=== PATIENT | female | born 1985 | race Caucasian/White ===

== ENCOUNTER 2021-12-03 07:03 | Outpatient (CLI) | payer OTHER, SELFPAY ==
--- NOTE | 2021-12-03 07:15 | CRLHL7_ITS ---
For Patients: As a result of the Century Cures Act, medical imaging exams and procedure reports are released immediately into your electronic medical record. You may view this report before your referring provider. If you have questions, please contact your health care provider. INDICATION: Infertility, upcoming embryo transfer. TECHNIQUE: Ultrasound pelvis transvaginal for better assessment or to better visualize the endometrium. Real-time sonographic images with color Doppler images of the ovaries. No spectral waveform analysis. COMPARISON: Pelvic ultrasound 07/19/2021. FINDINGS: Uterus: 7.4 x 3.8 x 5.0 cm. Arcuate uterus with normal smooth fundal contour. Normal echotexture of the myometrium. No masses. Endometrium: Transvaginal imaging was performed to better evaluate the endometrium. Endometrial thickness measures 8 mm. No sign of endometrial mass or fluid. Right ovary measures 3.7 x 1.9 x 2.0 cm and left ovary measures 4.5 x 2.1 x 2.2 cm. No ovarian or adnexal masses. Normal color flow in the ovaries. Cul-de-sac: No significant free fluid. IMPRESSION: Arcuate uterus, otherwise unremarkable exam. Dictated by Gregory Lee MD @ 12/03/2021 9:34:35 AM (Electronically Signed)
[2021-12-03 08:05] LABS: C Reactive Protein* < 0.5 mg/dL (0.5-1.0)
[2021-12-04 10:33] LABS: Estradiol Premenol Female 331 pg/mL
[2021-12-08 23:38] LABS: Progesterone, HPLC-MS/MS <0.10 ng/mL
== END 2021-12-03 07:04 | disposition home or self-care (01) ==
PROVIDERS: Visit Provider Specialist
DX: N94.9 Unspecified condition associated with female genital organs and menstrual cycle (principal)
CPT/HCPCS: 36415; 76830; 82670; 84144; 84443; 86140

== ENCOUNTER 2021-12-11 07:00 | Outpatient (CLI) | payer OTHER, SELFPAY ==
--- NOTE | 2021-12-11 07:15 | CRLHL7_ITS ---
For Patients: As a result of the Century Cures Act, medical imaging exams and procedure reports are released immediately into your electronic medical record. You may view this report before your referring provider. If you have questions, please contact your health care provider. CLINICAL HISTORY: Pre IVF, EVALUATE FOR UTERINE AND OVARIAN ABNORMALITIES Comparison: 12/03/2021 TECHNIQUE: 2D win scale and color Doppler images were acquired of the pelvis using a transvaginal approach. FINDINGS: On transvaginal imaging, the myometrium has a normal uniform echotexture. The uterus measures 6.7 x 4.0 x 5.5 cm. The endometrial lining appears normal and measures 10 mm in thickness. The left ovary measures 4.1 x 2.1 x 2.0 cm in size and the right ovary measures 4.6 x 2.9 x 2.1 cm. The ovaries demonstrate normal arterial and venous blood flow on color Doppler analysis. Multiple subcentimeter ovarian follicles are present bilaterally. Trace pelvic free fluid with debris. IMPRESSION: No abnormalities of the uterus or ovaries identified. Trace mildly complex pelvic free fluid. Dictated by Sean Olivares MD @ 12/11/2021 9:02:20 AM (Electronically Signed)
[2021-12-13 13:12] LABS: Estradiol by TMS 321.1 pg/mL
[2021-12-15 20:36] LABS: Progesterone, HPLC-MS/MS <0.10 ng/mL
== END 2021-12-11 07:01 | disposition home or self-care (01) ==
LOC: US 07:00
PROVIDERS: Visit Provider Specialist
DX: N92.1 Excessive and frequent menstruation with irregular cycle (principal); N94.9 Unspecified condition associated with female genital organs and menstrual cycle
CPT/HCPCS: 36415; 76830; 82670; 84144

== ENCOUNTER 2022-01-28 14:56 | Outpatient (CLI) | payer OTHER, SELFPAY ==
--- NOTE | 2022-01-28 15:00 | CRLHL7_ITS ---
For Patients: As a result of the Cures Act, medical imaging exams and procedure reports are released immediately into your electronic medical record. You may view this report before your referring provider. If you have questions, please contact your health care provider. INDICATION: First trimester scan, establish dates. COMPARISON: None. TECHNIQUE: Real-time win-scale imaging of the pelvis was performed. FINDINGS: Sonographic imaging demonstrates a single living intrauterine gestation. The embryo demonstrates a regular cardiac rate measuring 171 beats per minute. The embryo`s crown-rump length measurement of 2.0 cm corresponds to a gestational age of 8 weeks 4 days with a sonographic due date of 09/05/2022. There is a normal-appearing yolk sac. There are no gross abnormalities noted within the embryo at this early state of development. The gestational sac has a somewhat irregular margin. There is a large perigestational hemorrhage measuring 4.4 x 2.8 x 5.2 cm. The amount of fluid within the sac appears appropriate for gestational age. The cervix is closed. The myometrium appears normal. The ovaries are of normal size. There are no suspicious fluid collections noted in the cul-de-sac. IMPRESSION: Single living intrauterine with sonographic gestational age 8 weeks 4 days and sonographic due date 09/05/2022. Large subchorionic hemorrhage to the left of the gestational sac measuring 4.4 x 2.8 x 5.2 cm. Slightly irregular margin to the gestational sac. Follow-up in 2 weeks recommended. Dictated by Sean Olivares MD @ 01/29/2022 10:14:07 AM (Electronically Signed)
== END 2022-01-28 14:57 | disposition home or self-care (01) ==
PROVIDERS: PCP Family Medicine; Visit Provider Registered Nurse
DX: Z34.91 Encounter for supervision of normal pregnancy, unspecified, first trimester (principal); O20.9 Hemorrhage in early pregnancy, unspecified; Z3A.08 8 weeks gestation of pregnancy
CPT/HCPCS: 76817

== ENCOUNTER 2022-01-28 16:31 | Outpatient (CLI) | payer OTHER, SELFPAY ==
[2022-01-28 20:21] LABS: Hepatitis B Surface Antigen* Negative (Negative)
[2022-01-28 20:29] LABS: HIV 1/2/P24 Combo Screen* Negative (Negative)
[2022-01-28 20:38] LABS: Hepatitis C Virus Antibody* Negative (Negative)
[2022-01-28 21:23] LABS: Chlamydia DNA Amplified* NOT DETECTED (No Detected); GC DNA Amplified* NOT DETECTED (No Detected)
[2022-01-31 00:44] LABS: Varicella-Zoster Virus Ab, IgG 504.1 IV
[2022-01-31 00:51] LABS: Rubella Antibody IgG 10.4 IU/mL
[2022-01-31 02:09] LABS: Rapid Plasma Reagin (RPR) Non Reactive (Non Reactive)
== END 2022-01-28 16:32 | disposition home or self-care (01) ==
PROVIDERS: PCP Family Medicine; Visit Provider Registered Nurse
DX: Z34.91 Encounter for supervision of normal pregnancy, unspecified, first trimester (principal); Z3A.08 8 weeks gestation of pregnancy
CPT/HCPCS: 86592; 86703; 86762; 86787; 86803; 86850; 86900; 86901; 87086; 87340; 87491; 87591

== ENCOUNTER 2022-02-11 13:51 | Outpatient (CLI) | payer OTHER, SELFPAY ==
--- NOTE | 2022-02-11 14:00 | CRLHL7_ITS ---
For Patients: As a result of the Century Cures Act, medical imaging exams and procedure reports are released immediately into your electronic medical record. You may view this report before your referring provider. If you have questions, please contact your health care provider. INDICATION: F/U on KYM COMPARISON: 01/28/2022 TECHNIQUE: Real-time win-scale imaging of the pelvis was performed. FINDINGS: Sonographic imaging demonstrates a single living intrauterine gestation. The embryo demonstrates a regular cardiac rate measuring 176 beats per minute. The embryo`s crown-rump length measurement of 4.3 cm corresponds to a gestational age of 11 weeks 1 day with a sonographic due date of 09/01/2022. There is a normal-appearing yolk sac. There are no gross abnormalities noted within the embryo at this early state of development. The gestational sac has a normal appearance. There is a small 0.8 x 0.5 x 1.7 cm perigestational hemorrhage. The amount of fluid within the sac appears appropriate for gestational age. The cervix is closed. The myometrium appears normal. The right ovary is normal. The left ovary is not visualized. There are no suspicious fluid collections noted in the cul-de-sac. IMPRESSION: Single living intrauterine with sonographic gestational age 11 weeks 1 day and sonographic due date of 09/01/2022. Small inferior subchorionic hemorrhage measures 8 x 5 x 17 millimeters. Dictated by Sean Olivares MD @ 02/12/2022 9:04:25 AM (Electronically Signed)
== END 2022-02-11 13:52 | disposition home or self-care (01) ==
LOC: US 13:52
PROVIDERS: PCP Family Medicine; Visit Provider Registered Nurse
DX: Z34.91 Encounter for supervision of normal pregnancy, unspecified, first trimester (principal); Z3A.11 11 weeks gestation of pregnancy
CPT/HCPCS: 76816; 76817

== ENCOUNTER 2022-07-30 14:39 | Outpatient (CLI) | payer OTHER, SELFPAY | END 2022-07-30 14:40 | disposition home or self-care (01) | PROVIDERS: PCP Family Medicine; Visit Provider Obstetrics & Gynecology | DX: O09.523 Supervision of elderly multigravida, third trimester (principal); Z3A.34 34 weeks gestation of pregnancy | CPT/HCPCS: 82565; 82570; 84156; 84450; 84460; 84520 ==

== ENCOUNTER 2022-08-01 08:32 | Outpatient (CLI) | payer OTHER, SELFPAY | END 2022-08-01 08:33 | disposition home or self-care (01) | PROVIDERS: PCP Family Medicine; Visit Provider Obstetrics & Gynecology | DX: O09.523 Supervision of elderly multigravida, third trimester (principal); Z3A.35 35 weeks gestation of pregnancy | CPT/HCPCS: 76819; 82565; 84450; 84460; 84520; 84550 ==

== ENCOUNTER 2022-08-05 09:13 | Outpatient (CLI) | payer OTHER, SELFPAY | END 2022-08-05 09:14 | disposition home or self-care (01) | LOC: NFLDREF 16:18 | PROVIDERS: PCP Family Medicine; Referring Provider Family Medicine; Visit Provider Obstetrics & Gynecology | DX: O16.9 Unspecified maternal hypertension, unspecified trimester (principal) | CPT/HCPCS: 82570; 84156 ==

== ENCOUNTER 2022-08-08 16:17 | Outpatient (CLI) | payer OTHER, SELFPAY ==
[2022-08-08 16:26] VITALS: PULSE 92; O2SAT 100
[2022-08-08 16:27] VITALS: BP 119/75; PULSE 93; RESP 18; TEMP 36.8
[2022-08-08 16:44] LABS: Hemoglobin* 11.2 gm/dL (12.0-16.0); Mean Corpuscular HGB Conc 33 gm/dL (32-36); Mean Corpuscular Hemoglobin 31 pg (26-34); Mean Corpuscular Volume 94 fL (80-100); Platelet Count* 234 K/uL (140-440); Red Blood Count 3.62 m/uL (4.00-5.20); White Blood Count* 9.89 K/uL (4.50-11.00)
[2022-08-08 16:45] LABS: Slide Review Reflex No
[2022-08-08 16:50] VITALS: BP 119/76; PULSE 100
[2022-08-08 16:56] LABS: Prothrombin Time 12.7 Seconds
[2022-08-08 16:57] LABS: Alanine Aminotransferase* 17 U/L (4-35); Aspartate Amino Transferase* 28 U/L (12-35); Blood Urea Nitrogen* 6 mg/dL (5-24); Creatinine* 0.5 mg/dL (0.5-1.5); Estimated Glomerular Filt Rate 124 ml/min; Fibrinogen* 461 mg/dL (200-450); Partial Thromboplastin Time* 29 Seconds (23-33)
[2022-08-08 17:08] VITALS: BP 130/81; PULSE 96
[2022-08-08] MEDS: CALCIUM CARBONATE 500 MG CHEW PO (17:12)
[2022-08-08 17:20] VITALS: BP 121/77; PULSE 104
[2022-08-08 17:36] VITALS: BP 133/82; PULSE 90
--- NOTE | 2022-08-08 17:42 | P.OBLDTN_ITS ---
OB - Triage/Final Diagnosis Visit Information Date of evaluation: 08/08/22 Narrative: The patient is a 37 year old 1 para 0 at 36 0/7 weeks gestation by LMP, who presents with RUQ pain. complicated by mild pre-eclampsia and GDMA1. Sent over from [facility] clinic for labs and monitoring while awaiting results of imaging. Evaluation Laboratory results: Laboratory Tests 08/08/22 Range/Units 16:34 WBC 9.89 (4.50-11.00) K/uL RBC 3.62 L (4.00-5.20) m/uL Hgb 11.2 L (12.0-16.0) gm/dL Hct 34.0 (33.0-51.0) % MCV 94 (80-100) fL MCH 31 (26-34) pg MCHC 33 (32-36) gm/dL Plt Count 234 (140-440) K/uL INR 0.90 L (0.91-1.10) APTT 29 (23-33) Seconds Fibrinogen 461 H (200-450) mg/dL BUN 6 (5-24) mg/dL Creatinine 0.5 (0.5-1.5) mg/dL Estimated GFR 124 ml/min AST 28 (12-35) U/L ALT 17 (4-35) U/L Vital signs: Vital Signs - 24 hr 08/08/22 16:26 08/08/22 16:27 08/08/22 16:27 Temperature 98.3 F Pulse Rate 93 Respiratory Rate 18 Blood Pressure 119/75 Pulse Oximetry 100 08/08/22 16:50 08/08/22 17:08 08/08/22 17:20 Temperature Pulse Rate 100 96 104 H Respiratory Rate Blood Pressure 119/76 130/81 121/77 Pulse Oximetry 08/08/22 17:36 Temperature Pulse Rate 90 Respiratory Rate Blood Pressure 133/82 Pulse Oximetry Comments: Abdominal ultrasound shows adenomymatosis of gallbladder wall. No biliary obs truction. Fetus (Single) Heart Rate Baseline: 152 Controller Repairer And Tester Variability: Moderate (6-25) Monitor Accelerations: Present Monitor Decelerations: None Final Diagnosis (1) Adenomyomatosis of gallbladder: Status: Acute Problem details: Surgery referral for consideration of cholecystectomy. Discussed with Dr. Holcomb, surgery can be delayed until after delivery. No need for delivery. Low fat diet recommended. (2) Pre-eclampsia: Status: Acute Problem details: without severe features. Delivery at 37 weeks recommended.
--- NOTE | 2022-08-08 18:12 | PC.OBNST ---
NST Note NST Note Start: 08/08/22 16:22 Freq: ONCE Status: Active Protocol: Document 08/08/22 17:54 AAP (Rec: 08/08/22 18:12 AAP [id number]) NST Note 3 Para (# of births) 1 EDC 09/05/22 Gestational Age In Weeks & Days 36 Weeks & 0 Days High Risk Factors High Blood Pressure - Gestational,Diabetes - Gestational Diet Controlled Patient Presented with Complaint(s) of Other Other Complaints Rule out pre-e. Right upper quadrant pain. Pt sent from clinic. Reactive Yes Appropriate for Gestational Age Yes ROSIE Alexander, RN Date 08/08/22 Reactive Yes Appropriate for Gestational Age Yes ROSIE Killian RNC Date 08/08/22 OB NST charge Yes Complete NST Note via Write Note Yes The provider's electronic signature indicates the NST is reactive/appropriate for gestational age. *Note to provider: If an addendum is required, open the patient's chart and click on the note under the Nurse/Allied Health tab.
[2022-08-09 01:19] LABS: Bilirubin Total* 0.6 mg/dL (0.1-1.5); Lipase* 115 U/L (23-300)
== END 2022-08-08 17:54 | disposition home or self-care (01) ==
LOC: OB OUT 16:18 → OB 16:20
PROVIDERS: PCP Family Medicine; Visit Provider Obstetrics & Gynecology
DX: O24.419 Gestational diabetes mellitus in pregnancy, unspecified control (principal)
CPT/HCPCS: 36415; 59025; 76705; 76819; 82247; 82248; 82565; 83690; 84450; 84460; 84520; 85027; 85384; 85610; 85730; 87081; 87653; 99213; A9270

== ENCOUNTER 2022-08-12 15:10 | Outpatient (CLI) | payer OTHER, SELFPAY ==
[2022-08-12 15:17] VITALS: BP 142/91; PULSE 112
[2022-08-12] MEDS: BETAMETHASONE SOD PHOS/ACETATE 6 MG/ML ML 12 MG IM (15:19)
== END 2022-08-12 15:25 | disposition home or self-care (01) ==
LOC: OB CLI 15:10 → OB 15:11
PROVIDERS: PCP Family Medicine; Visit Provider Obstetrics & Gynecology
DX: O09.523 Supervision of elderly multigravida, third trimester (principal); Z3A.36 36 weeks gestation of pregnancy
CPT/HCPCS: 99211; J0702

== ENCOUNTER 2022-08-13 07:12 | Outpatient (CLI) | payer OTHER, SELFPAY ==
--- NOTE | 2022-08-13 07:15 | CRLHL7_ITS ---
For Patients: As a result of the Century Cures Act, medical imaging exams and procedure reports are released immediately into your electronic medical record. You may view this report before your referring provider. If you have questions, please contact your health care provider. INDICATION: PREECLAMPSIA, GDM, AMA TECHNIQUE: Real time win scale imaging of the fetus was performed. COMPARISON: 08/08/2022 FINDINGS: Sonographic imaging demonstrates a single living intrauterine gestation. Fetus demonstrates a regular cardiac rate of 141 beats per minute. Fetus has a transverse position, head maternal left. The placenta lies posteriorly. Amniotic fluid volume appears normal and there is a single deepest pocket of 4.1 cm. The estimated weight is 3012gm which lies at the 55th %. On the prior OB ultrasound dated 07/11/2022 the estimated weight was at the 35th percentile. BPD 7th percentile. HC 52nd present. AC 62nd percentile. FL 67th percentile. The fetus was active and demonstrated normal breathing movements. There was normal flexion and extension of the trunk and extremities. IMPRESSION: Normal biophysical profile score 8/8. Sonographic gestational age 36 weeks 4 days and sonographic due date 09/06/2022. Good correlation with dates. Normal interval growth. Estimated weight 55th percentile. Abdominal circumference 62nd percentile. Dictated by Sean Olivares MD @ 08/13/2022 9:19:52 AM (Electronically Signed)
== END 2022-08-13 07:13 | disposition home or self-care (01) ==
LOC: US 07:13
PROVIDERS: PCP Family Medicine; Visit Provider Obstetrics & Gynecology
DX: O14.90 Unspecified pre-eclampsia, unspecified trimester (principal); O24.419 Gestational diabetes mellitus in pregnancy, unspecified control; O09.523 Supervision of elderly multigravida, third trimester; Z3A.36 36 weeks gestation of pregnancy
CPT/HCPCS: 76816; 76819

== ENCOUNTER 2022-08-14 10:33 | Inpatient (IN) | payer OTHER, SELFPAY ==
[2022-08-14] VITALS (19 sets, daily range): BP systolic 119–146; BP diastolic 73–86; PULSE 91–103; TEMP 36.6–37.2; O2SAT 89–100; BMI 34.0
[2022-08-14] MEDS: TERBUTALINE 1 MG/ML INJ 0.25 MG SUBCUT (10:06)
[2022-08-14] MEDS: miSOPROStoL 25 MCG/0.25 TABLET VAGINAL ×4 (11:35→19:55)
--- NOTE | 2022-08-14 12:57 | P.LDBA_ITS ---
Subjective History of Present Illness Date Seen: 08/14/22 Narrative: Patient is being admitted to Labor and Delivery for IOL due to preeclampsia w/o severe features. She is a 37 year old at 36 6/7 weeks gestation. Her full history and physical was dictated by Dr. Verdugo on 08/11/22. Please see this for details. This morning ECV was attempted and succesful, presentation was found to be transverse back down on 08/11/22. Specific Issues/Plans : Joseph. Baby: Girl! 1. Conceived through IVF. Frozen embryo transfer 12-18-21. * Recommend level 2 ultrasound with echo-ordered on 03/04/22: Performed on 04/11/2022, normal anatomy, low-lying placenta. * echo 05/16/22: Intermittent PACs noted, otherwise normal. Recommendations: Completely eliminating all caffeine sources. Recommend weekly Doptones for 5-10 minutes to assess frequency of arrhythmia. If still intermittent with periods of normal sinus rhythm in between, continue with this weekly monitoring until delivery. Reviewed at that PAC's after resolve spontaneously. If there is no arrhythmia for 2 weeks in a row, then can return to routine care at that time. However, if tachy or Norris- arrhythmia is ever noted, please call us to facilitate next steps based on findings. Additionally, if PAC are persisted beyond the next 4 weeks, please refer back so we can coordinate another echo. * Growth @ 32 weeks: EFW: 35%, AC: 35%, BPD: <3%, HC: 44%, FL: 56% * Consider delivery at 39 weeks 2. Advanced maternal age: * Daily baby ASA starting at 12 weeks * Genetic screening: declined, as they had genetic testing done prior to embryo transfer. Need records: reviewed normal genetic embryo transferred * Level 2 ultrasound and echo as above 3. Large KYM 4.4 x 2.8 x 5.2 cm. Rec. pelvic rest and avoiding strenuous lifting. * IMPRESSION: Single living intrauterine with sonographic gestational age 8 weeks 4 days and sonographic due date 09/05/2022.Large subchorionic hemorrhage to the left of the gestational sac measuring 4.4 x 2.8 x 5.2 cm. Slightly irregular margin to the gestational sac. 4. H/o abnormal pap and normal colp in 2014 per patient. Patient reports normal pap and neg. HPV 10/2018. No record of this. Pap repeated at first OB and normal. 5. Low lying placenta (1.8cm from os). Will recheck at 32 week u/s. RESOLVED. Placental edge 2.4cm from internal os. 6. Diagnosed with basal cell carcinoma of the face (beneath right eye). Planning Mohs surgery in September. Patient prefers to wait until delivery to have the procedure done. 7. Gestational DM , diet-controlled * 1hr GCT: 143. Patient declines 3hr GTT due to work schedule. * Checked BS x1-2 weeks: >25% of BG were elevated * 2x weekly surveillance (NST Mon/Tu, BPP Th/Fri, scheduled)Q.4 weeks growth scan * 32 weeks: EFW: 35%, AC: 35%, BPD: <3%, HC: 44%, FL: 56% * 36wks: [] pending 9. Preeclampsia, currently without definite severe features. * Elevated BP (140/70) on 07/30/22. * Reports occasional mild elevations of BP at work (130/90), as well as several severe-range BP elevations at home; no severe range elevations documented in clinic * glycerin operator visit for BP teaching done and home cuff reportedly functioning. * HELLP labs 07/30/22 normal except protein:creatinine 0.30. 24 hour urine ordered: 550 mg * Begin twice weekly antepartum testing, BPP alternating with NST * Weekly PIH labs * IOL 37 0/7 weeks gestation for preeclampsia without severe features * Betamethasone August 11 and 05 20. RUQ pain from gallbladder adenomyomatosis * Diagnosis based on abdominal US 08/08/22 * General surgery consult ordered. Likely needs cholecystectomy . * Low fat diet recommended. Flu: allergic reaction to flu vaccination in the past. COVID: Not vaccinated. Recommended. Reviewed risks of COVID infection in . TDAP: declined OB - Problem Based A/P Additional Plan (1) Pre-eclampsia: Problem details: without severe features. Delivery at 37 weeks recommended. Status: Acute (2) Gestational diabetes: Status: Acute Plan 1. IOL started with cervical ripening, per Cytotec protocol. Will avoid cook catheter due to unstable lie. 2. GBS negative no need for antibiotic prophylaxis. 3. Preeclampsia w/o severe features, will monitor BPs and clinical symptoms closely. If severely elevated blood pressures will treat with IV antihypertensives if needed, start Magnesium sulfate etc... 4. GDMA1, will monitor BS levels per protocol treat appropriately if needed. 5. Continuous monitoring. 6. Pain management as per patient preference. OB Exam Physical Exam Vital signs: Temp Pulse BP Pulse Ox 98.9 F 93 127/80 98 08/14/22 10:03 08/14/22 10:04 08/14/22 10:04 08/14/22 11:05 Detailed Labor and Delivery Exam Patient Gravid: Yes Dilation (cm): 0 Effacement (%): 50 Cervix position: mid Consistency: medium Contraction Frequency: None Tachysystole: No Fetus (Single) Station: -3 Amniotic Membrane Status: intact Heart Rate Baseline: 140 Monitor Accelerations: Present Monitor Decelerations: None Group Home Variability: Moderate (6-25)
--- NOTE | 2022-08-14 13:24 | P.OBO_ITS ---
OB Outpatient HPI History of Present Illness Date Seen: 08/14/22 History of Present Illness: 37 year old at 36 6/7 weeks gestation presents for planned external cephalic version. Fetus has been in varying positions in the last few weeks: cephalic, breech, and most recently, transverse. Procedure note: External cephalic version Obstetricians: Candice Verdugo MD and Letty Willis MD I discussed risks of procedure with patient, including discomfort, abnormal heart rate, placental abruption, rupture of membranes, labor, and possibility of unsuccessful attempt. Consent form was reviewed with and signed by patient. Bedside ultrasound was performed, revealing fetus to be transverse position, back down, head to maternal left. IV was placed and patient was given a single dose of terbutaline. 10 minutes after this dose, maternal abdomen was coated in ultrasound gel. Two attempts were made to institute a backward roll of the fetus, moving the head and body in a clockwise direction. The fetus was successfully converted to cephalic lie after the 2nd attempt. tracing before and after was reassuring. Patient tolerated procedure well. Meds Home Medications and Allergies Home Medications Medication Instructions Recorded Confirmed Type coenzyme W23-trkawik E 100 mg-100 3 cap PO DAILY 01/28/22 08/11/22 History unit capsule 103-folic acid 400 1 tab PO DAILY 01/28/22 08/11/22 History mcg-omeg3 32.5 mg-dha-fish oil chew tablet ( with DHA and Folic Acid) magnesium 250 mg tablet 250 mg PO QDAY 03/04/22 08/11/22 History calcium carbonate 200 mg calcium 200 mg PO BID 04/29/22 08/11/22 History (500 mg) chewable tablet (Tums) Allergies Allergy/AdvReac Type Severity Reaction Status Date / Time influenza virus vaccine, Allergy Severe Arm Verified 08/11/22 14:38 specific swelling, numbness and tingling lactose AdvReac Intermediate Gastrointestinal Verified 08/11/22 14:38 Upset [facility] Medical History (Updated 08/14/22 @ 13:28 by Candice Verdugo MD) Recurrent major depressive disorder ?F33.9 - Major depressive disorder, recurrent, unspecified (ICD-10) History of abnormal cervical Papanicolaou smear (10/12/15) ?Z87.42 - Personal history of other diseases of the female genital tract (ICD-10) Fibrocystic breast changes ?N60.19 - Diffuse cystic mastopathy of unspecified breast (ICD-10) Female infertility ?N97.9 - Female infertility, unspecified (ICD-10) Anxiety ?F41.9 - Anxiety disorder, unspecified (ICD-10) Surgical History (Updated 08/11/22 @ 15:18 by Candice Verdugo MD) History of loop electrical excision procedure (LEEP) (12/04/15) ?Z98.890 - Other specified postprocedural states (ICD-10) History of laparoscopy (2019) ?Z98.890 - Other specified postprocedural states (ICD-10) Family History Father Coronary artery disease Social History (Updated 01/22/22 @ 08:58 by Suzi Mitchell) Narrative: . 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 What is your current living situation?: I presently have a place to live Problems where you live: no known problems In the past 12 months, utilities in danger of being shut off: no In the past 12 mos, have been you worried that your food would run out before you had money to buy more?: never true In the past 12 mos, the food you bought just didn't last and you didn't have money to buy more?: never true Smoking Status: Never smoker How often does anyone, including family, friends and others, physically hurt you : never How often does anyone, including family, friends and others, insult or talk down to you: never How often does anyone, including family, friends and others, threaten you with harm: never How often does anyone, including family, friends and others, scream or curse at you: never Little interest or pleasure in doing things: not at all Feeling down, depressed, or hopeless: several days History History 3 Elective abortions Para 0 Spontaneous abortions Hx # Term Pregnancies Ectopic pregnancies Hx # Pregnancies Multiple births Number of Living Children 0 OB - H&P: Exam Physical Exam Vital signs: Temp Pulse BP Pulse Ox 98.9 F 93 127/80 98 08/14/22 10:03 08/14/22 10:04 08/14/22 10:04 08/14/22 11:05 Assessment and Plan Assessment and plan (1) Pre-eclampsia: Problem comment: without severe features. Delivery at 37 weeks recommended. Status: Acute (2) Gestational diabetes: Status: Acute (3) Successful external cephalic version: Status: Acute Plan Patient was subsequently admitted for IOL for preeclampsia.
[2022-08-14 15:14] LABS: Basophils Percent Auto 0.3 % (0.0-3.0); Eosinophils Percent Auto 0.7 % (0.0-7.0); Hematocrit 35.8 % (33.0-51.0); Hemoglobin* 11.7 gm/dL (12.0-16.0); Immature Granulocytes Pct Auto 2.1 %; Lymphocytes Percent Auto 17.7 % (20-44); Mean Corpuscular HGB Conc 33 gm/dL (32-36); Mean Corpuscular Hemoglobin 31 pg (26-34); Mean Corpuscular Volume 95 fL (80-100); Monocytes Percent Auto 7.9 % (0.0-11.0); Neutrophils Percent Auto 71.3 % (42.0-72.0); Platelet Count* 282 K/uL (140-440); Red Blood Count 3.77 m/uL (4.00-5.20)
[2022-08-14 15:16] LABS: Slide Review Reflex No
[2022-08-14] MEDS: hydrOXYzine pamoate 25 MG CAPSULE 100 MG PO (22:01)
[2022-08-14] MEDS: MORPHINE 10 MG/ML inj IM (22:05)
[2022-08-15] VITALS (43 sets, daily range): BP systolic 97–153; BP diastolic 7–117; PULSE 92–136; RESP 16–20; TEMP 36.3–38.1; O2SAT 94–100
[2022-08-15] MEDS: LACTATED RINGERS 1000 ML 1,000 ML 500 ML IV (01:28)
[2022-08-15] MEDS: TERBUTALINE 1 MG/ML INJ 0.25 MG SUBCUT (01:33)
--- NOTE | 2022-08-15 04:03 | P.OBPN_ITS ---
Subjective Time Seen by Provider: 04:03 Date Seen: 08/15/22 Narrative: Feeling uncomfortable Objective Vital Signs: Last Vital Signs Temp 98.9 F 08/15/22 03:31 Pulse 100 08/15/22 03:31 Resp 16 08/15/22 03:31 BP 131/78 08/15/22 03:31 Pulse Ox 99 08/14/22 16:40 Pelvic Exam Dilation (cm): Ft Effacement (%): 75 Station: -4 Comments: Transverse back up, head towards maternal right. Contractions Monitor mode: External Contraction pattern: Regular Contraction intensity: Mild Assessment Assessment: induction ongoing (Induction stopped after malpresentation diagnosis ) Station: -4 Status: Category l Heart Rate Baseline: 140 Nursing Home Variability: Moderate (6-25) Monitor Accelerations: Present Monitor Decelerations: None Plan Plan: I was asked by nurses to reassess patient, she had felt as if baby had moved back again to transverse position. She had received so far 4 doses of Cytotec and was tachysystolic and very uncomfortable, we had tried IV Morphine and Vistaril but this was not helpful, recommendation to give one dose of T erbutaline and this has spaced out uterine contractions to a more regular pattern. Cervix is still unchanged. With bedside US confirmed malpresentation, transverse back up head towards maternal right side. Discussed my concerns with patient and . Patient had asked about repeating a ECV. Discussed that this is a possibility, but certain findings concern me, such as she is harley frequently and this would make the ECV trial harder. Why baby has not stayed vertex, is there a structural lesion in her lower uterine segment that is occupying space, is there a umbilical cord wrapped around the body preventing baby to come down? Discussed that my other concern would be the need for an emergency delivery vs a more controlled setting. Discussed that section is a surgical procedure with risks associated but when we talk about an emergency delivery risks are slightly higher (bleeding, damage to nearby organs, infection.) Offered proceeding with delivery at this time vs trying ECV again and I would try IV Oxytocin instead of Cytotec if we are succesful. I wanted to give patient and some time to talk and make a decision. Will follow up closely.
[2022-08-15] MEDS: miSOPROStoL 25 MCG/0.25 TABLET 800 MCG VAGINAL (06:04)
[2022-08-15 06:12] LABS: Basophils Percent Auto 0.4 % (0.0-3.0); Eosinophils Percent Auto 0.7 % (0.0-7.0); Hemoglobin* 10.1 gm/dL (12.0-16.0); Immature Granulocytes Pct Auto 1.3 %; Lymphocytes Percent Auto 17.2 % (20-44); Mean Corpuscular HGB Conc 33 gm/dL (32-36); Mean Corpuscular Hemoglobin 31 pg (26-34); Mean Corpuscular Volume 96 fL (80-100); Monocytes Percent Auto 7.2 % (0.0-11.0); Neutrophils Percent Auto 73.2 % (42.0-72.0); Platelet Count* 280 K/uL (140-440); RDW Coefficient of Variation % 13.2 % (11.5-15.5); Red Blood Count 3.24 m/uL (4.00-5.20)
[2022-08-15 06:18] LABS: Slide Review Reflex No
[2022-08-15 06:43] LABS: INR 1.01 (0.91-1.10); Prothrombin Time 13.9 Seconds
[2022-08-15 06:44] LABS: Partial Thromboplastin Time* 27 Seconds (23-33)
[2022-08-15 06:45] LABS: Fibrinogen* 340 mg/dL (200-450)
--- NOTE | 2022-08-15 06:50 | P.ANES_ITS ---
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
--- NOTE | 2022-08-15 07:04 | P.NB_ITS ---
Nerve Block Nerve Block Time Seen by Provider: 06:35 Date Seen: 08/15/22 Type of block requested by surgeon for post-operative analgesia: TAP Side: bilateral Time out performed: Yes Verification of patient name: Yes Verification of date of : Yes Site marking: not applicable Name of person performing procedure: Benny Deleon Continuous monitoring Was continuous monitoring of O2 sat, B/P, residential monitor, recorded every 15 minutes?: Yes Procedure Checklist: sterile prep, needles and gloves Ultrasound guided. Images saved: Yes Medications given in 5ml increments after negative aspiration: Marcaine %: 0.25 mL: 30 Needle gauge: 20 and Exparel mL: 10 Needle gauge: 20 Patient tolerated procedure well: Yes Block Charges Block Charge (with Pro Fee): TAP Bilateral Use of Ultrasound Machine for Block: Yes- US Guidance/pain block
--- NOTE | 2022-08-15 07:04 | P.ANES_ITS ---
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
[2022-08-15] MEDS: LACTATED RINGERS 1000 ML 1,000 ML 800 ML IV (07:33)
[2022-08-15] MEDS: AZITHROMYCIN 500 MG in 0.9 % SODIUM CHLORIDE 250 ml 250 ML 255 MG IVPB (07:33)
[2022-08-15] MEDS: LOPERAMIDE HCL 2 MG CAPSULE 4 MG PO (07:49)
[2022-08-15] MEDS: KETOROLAC 30 MG/ML inj IVP ×3 (08:00→19:57)
[2022-08-15] MEDS: ACETAMINOPHEN 500 MG TABLET 1000 MG PO ×2 (09:34→19:03)
[2022-08-15] MEDS: LACTATED RINGERS 1000 ML 1,000 ML 125 ML IV (09:34)
--- NOTE | 2022-08-15 09:50 | PM.OBPRCCS ---
Procedure Time Seen by Provider: 05:30 Date of procedure: 08/15/22 Pre-op diagnosis: malpresentation, preeclampsia w/o severe features, GDMA1 Post-op diagnosis: other (Same now delivered, PPH due to uterine atony, suspected abnormal placentation) Procedure Done: Global Will [facility] bill your pro fee for this procedure?: Yes Blood Loss Measurement Type: QBL (1999) Bakri Used: Yes Urine Output (mL): 500 (Clear urine) Surgeon: Mandy Cordero MD Board Design Engineer: Kaylah Anesthesia type: Spinal Findings: FINDINGS: Live-born female infant, transverse presentation, Apgars 8 and 9 at 1 and 5 minutes respectively. weight 6 pounds 15 ounces. Normal appearing uterus, tubes, and ovaries. Large placenta,covering most of the posterior lower uterine segment, areas of suspected focal abnormal placentation. Cervix 1cm, long. Procedure Description: Name of procedure: Primary low transverse section, Bakri balloon placement PROCEDURE: After obtaining informed consent, the patient was taken to the operating room where spinal anesthesia was obtained and found to be adequate. She was prepared and draped in the normal sterile fashion in the dorsal supine position with a leftward tilt. A Pfannenstiel skin incision was made with a scalpel about 2 cm above symphysis pubic bone, 8-10 cm in length. This incision was carried down to the underlying layer of fascia with the Bovie and scalpel. The fascia was incised in the midline and the incision extended laterally. The rectus muscles were then in the midline. The Ángel O retractor was then placed into the incision. The lower uterine segment was then incised in a transverse fashion with the scalpel. Upon entry into the uterus, clear amniotic fluid was noted. The uterine incision was extended cephalo caudally with blunt finger fractionation. I attempted an internal version but baby did not move at all. legs were then grasped and brought up to incision, both legs were delivered, hips were then grasped with a lap and body was turned to deliver the left arm and baby was turned again to deliver the right arm. head was also noted at incision and carefully delivered avoiding hyperextension of the neck. 2 nuchal cords were noted and found to be loose and easily reduced after head delivery. The cord was doubly clamped and cut, and the was handed off the field to warmer for evaluation. The placenta was noted to have detached from posterior fundal area but still attached in the posterior lower uterine segment, placenta was noted to cover almost the entire posterior low uterine segment. Manual sweep resulted in detachment of 2-3 areas were placenta seemed to be abnormally implanted. After removal, posterior myometrium defects noted again mostly on the posterior lower uterine segment. Utilizing Vicryl 0 figure of 8 sutures were placed on these areas to help decrease active bleeding. This did help but did not control entirely bleeding. At the same time, uterine atony was diagnosed and ordered medications for treatment, IV Oxytocin 30 units running, 1g of TXA given, 1 dose of Hemabate, 800mcg of rectal Misoprostol. Decision was made to place Bakri balloon, I was unable to pass the gauge through the cervix since the cervix was 1cm, long. Decision was made to place Bakri balloon vaginally after closure of hysterotomy. The uterine incision was reapproximated in a running locking fashion with a 0 Vicryl suture. A 2nd layer of the same suture was used to imbricate in horizontal fashion. I was then able to place the Bakri balloon vaginally since the catheter with balloon tip passed easily through the cervical opening. Bakri balloon was filled with 150mL of Saline. No additional bleeding was noted vaginally. I then changed gown and gloves and attention was placed to the abdomen again. Bakri balloon was noted to be well placed mostly in the lower uterine segment, uterine fundus with adequate tone and at umbilicus. At that time EBL was close to 1500-1800mL and labs were obtained. Patient was vitally stable. The gutters were inspected and cleared of blood clot. All instruments and retractors were removed. The subfascial tissues were carefully inspected and hemostasis assured. The fascia was reapproximated in a running fashion with a looped 0 Vicryl suture. The subcutaneous tissues were inspected and hemostasis was assured. The subcutaneous fat layer was reapproximated with interrupted sutures of 3-0 Vicryl. The skin was closed in a subcuticular fashion with 4-0 Monocryl. LiquiBand and dressing were applied. Uterus continued to feel well contracted and at the level of the umbilicus. Repeat vaginal exam showed no active bleeding and minimal amount of blood seen at the Bakri Balloon collection bag. The patient tolerated the procedure well. Sponge, lap, needle, and instrument counts were reported as correct x2. The patient was taken to the recovery room, awake, and in stable condition. She did receive 2 grams of IV Ancef and 500mg of Azithromycin preoperatively. I was then notified when patient was in recovery that HR was in the 130s, recommendation was given to transfuse 1 unit of PRBC and 1 unit of FFP. [place] Infant total score - 1 minute: 8 total score - 5 minute: 9
[2022-08-15 14:15] LABS: Basophils Percent Auto 0.2 % (0.0-3.0); Eosinophils Percent Auto 0.3 % (0.0-7.0); Hematocrit 25.6 % (33.0-51.0); Hemoglobin* 8.5 gm/dL (12.0-16.0); Lymphocytes Percent Auto 11.2 % (20-44); Mean Corpuscular HGB Conc 33 gm/dL (32-36); Mean Corpuscular Hemoglobin 31 pg (26-34); Mean Corpuscular Volume 94 fL (80-100); Monocytes Percent Auto 7.7 % (0.0-11.0); Neutrophils Percent Auto 79.6 % (42.0-72.0); Platelet Count* 184 K/uL (140-440); RDW Coefficient of Variation % 13.6 % (11.5-15.5); Red Blood Count 2.73 m/uL (4.00-5.20); White Blood Count* 13.63 K/uL (4.50-11.00)
[2022-08-15 14:24] LABS: Slide Review Reflex No
[2022-08-15 14:30] LABS: INR 1.05 (0.91-1.10); Prothrombin Time 14.3 Seconds
[2022-08-15 14:31] LABS: Fibrinogen* 312 mg/dL (200-450); Partial Thromboplastin Time* 29 Seconds (23-33)
[2022-08-16] VITALS (15 sets, daily range): BP systolic 98–131; BP diastolic 65–90; PULSE 82–99; RESP 14–18; TEMP 36.7–37.4; O2SAT 96–98
[2022-08-16] MEDS: ACETAMINOPHEN 500 MG TABLET 1000 MG PO ×4 (00:39→19:49)
[2022-08-16] MEDS: KETOROLAC 30 MG/ML inj IVP ×3 (03:24→15:18)
[2022-08-16 06:52] LABS: Hematocrit 22.4 % (33.0-51.0); Mean Corpuscular HGB Conc 32 gm/dL (32-36); Mean Corpuscular Hemoglobin 31 pg (26-34); Mean Corpuscular Volume 95 fL (80-100); Platelet Count* 150 K/uL (140-440); Red Blood Count 2.36 m/uL (4.00-5.20); White Blood Count* 12.35 K/uL (4.50-11.00)
[2022-08-16 07:00] LABS: Hemoglobin* 7.2 gm/dL (12.0-16.0); Slide Review Reflex No
[2022-08-16 07:12] LABS: INR 0.96 (0.91-1.10); Prothrombin Time 13.3 Seconds
[2022-08-16 07:13] LABS: Fibrinogen* 404 mg/dL (200-450); Partial Thromboplastin Time* 33 Seconds (23-33)
[2022-08-16] MEDS: DOCUSATE SODIUM 100 MG CAPSULE PO (09:09)
--- NOTE | 2022-08-16 10:02 | P.OBPN_ITS ---
OB - PN:Subj Subjective Date Seen: 08/16/22 Interval history: Alyssa is a 37-year-old G3 now P 1-0-2-1 woman who is status post primary low- transverse on 08/15/2022 at 37 weeks gestation for indication of malpresentation in the setting of preeclampsia without severe features. Cesa rean was complicated by adherent placenta and hemorrhage of 2000 cc. Bakri balloon was placed. OB Problem List: 1. Conceived through IVF. Frozen embryo transfer 12-18-21. 2. Advanced maternal age: 3. Large KYM 4.4 x 2.8 x 5.2 cm. Rec. pelvic rest and avoiding strenuous lifting. 4. H/o abnormal pap and normal colp in 2015 per patient. Patient reports normal pap and neg. HPV 10/2018. No record of this. Pap repeated at first OB and normal. 5. Low lying placenta (1.8 cm from os). Will recheck at 32 week u/s. RESOLVED. Placental edge 2.4cm from internal os. 6. Diagnosed with basal cell carcinoma of the face (beneath right eye). Planning Mohs surgery in September. Patient prefers to wait until delivery to have the procedure done. 7. Gestational DM , diet-controlled 8. Preeclampsia, currently without definite severe features. Elevated BP (140/70) on 07/30/22. 24 hour urine: 550 mg 9. 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 Likely needs cholecystectomy . Low fat diet recommended. Narrative: Alyssa received 1 u PRBC and 1 u FFP yesterday postoperatively. Bakri balloon was removed last night. Bleeding has been scant per RN report. However, she was feeling lightheaded this AM. Hb was 7.2, down from 8.5 yesterday at 1400. She is now being given a second unit of PRBCs. She feels more incisional pain today than she did yesterday. She has been able to walk a little. She is tolerating regular diet and passing flatus. She is her daughter, but currently using donor milk due to her milk not being in yet. She is urinating without difficulty. She has a history constipation, and used MiraLax throughout most of her . OB - PN: Obj Exam Physical Exam: Vital signs: Temp Pulse Resp BP Pulse Ox O2 Del Method 98.5 F 90 16 112/75 97 Room Air 08/16/22 07:38 08/16/22 07:38 08/16/22 07:38 08/16/22 07:38 08/16/22 07:38 08/16/22 07:38 Narrative: General: Pleasant, no acute distress Heart: Regular rate and rhythm, no murmur or gallop Lungs: Clear to auscultation bilaterally Abdomen: Soft, nontender, fundus well below umbilicus, normoactive bowel sounds, dressing clean, dry, and intact Lower extremities: 2+ edema bilaterally, no erythema OB - PN: Obj Data Labs Labs: Laboratory Results - last 24 hr 08/14/22 08/15/22 08/16/22 15:06 14:08 06:42 WBC 13.63 H 12.35 H RBC 2.73 L 2.36 L Hgb 8.5 L 7.2 L* Hct 25.6 L 22.4 L MCV 94 95 MCH 31 31 MCHC 33 32 RDW Coeff of Cora 13.6 Plt Count 184 150 Neut % (Auto) 79.6 H Lymph % (Auto) 11.2 L [place] % (Auto) 7.7 Eos % (Auto) 0.3 Baso % (Auto) 0.2 Neut # (Auto) 10.80 H Lymph # (Auto) 1.50 [place] # (Auto) 1.00 H Eos # (Auto) 0.00 Baso # (Auto) 0.00 Abs Immat Gran (auto) 0.10 Imm/Tot Granulo (auto) 1.0 INR 1.05 0.96 APTT 29 33 Fibrinogen 312 404 Blood Type A Positive Antibody Screen NEGATIVE Crossmatch (AHG) See Detail OB - PN: A/P Delivery Assessment and Plan (1) Pre-eclampsia: Problem details: without severe features. Status: Acute Assessment and Plan: Her most recent blood pressure was with a diastolic of 90, but she has otherwise been normotensive throughout her course. Continue to follow. (2) Gestational diabetes: Problem details: Diet controlled Status: Acute Assessment and Plan: Check fingersticks sometime today. Otherwise, we will plan for 2 hour GTT . (3) Adenomyomatosis of gallbladder: Problem details: Surgery referral for consideration of cholecystectomy was already placed and patient has seen Dr. Holcomb. Status: Acute Assessment and Plan: I will likely let Dr. Holcomb know that she has been delivered prior to discharge. (4) Status post primary low transverse section: Status: Acute Assessment and Plan: Now on postoperative day 1. Given her diagnosis of preeclampsia and hemorrhage of 2 L, as well as early term , I think it prudent to maintain inpatient status until postoperative day 3. We will re-evaluate tomorrow. (5) Postoperative anemia due to acute blood loss: Problem details: QBL 2 L. She has received 1 unit of packed red cells and 1 unit FFP. She is in the process of receiving a 2nd unit of PRBCs. Status: Acute Assessment and Plan: Repeat complete blood count at 4:00 p.m. today. Begin ferrous sulfate every other day. Given her history of constipation, begin MiraLax nightly.
[2022-08-16 10:54] LABS: Glucose* 111 mg/dL (60-115)
[2022-08-16] MEDS: FERROUS SULFATE 325 MG TABLET 650 MG PO (15:18)
[2022-08-16 16:24] LABS: Basophils Percent Auto 0.3 % (0.0-3.0); Eosinophils Percent Auto 1.2 % (0.0-7.0); Hematocrit 26.8 % (33.0-51.0); Hemoglobin* 8.8 gm/dL (12.0-16.0); Immature Granulocytes Pct Auto 1.9 %; Lymphocytes Percent Auto 14.6 % (20-44); Mean Corpuscular HGB Conc 33 gm/dL (32-36); Mean Corpuscular Hemoglobin 31 pg (26-34); Mean Corpuscular Volume 95 fL (80-100); Monocytes Percent Auto 6.1 % (0.0-11.0); Neutrophils Percent Auto 75.9 % (42.0-72.0); Platelet Count* 190 K/uL (140-440); RDW Coefficient of Variation % 13.9 % (11.5-15.5); Red Blood Count 2.82 m/uL (4.00-5.20); White Blood Count* 12.63 K/uL (4.50-11.00)
[2022-08-16 16:48] LABS: Slide Review Reflex No
[2022-08-16] MEDS: polyethylene glycoL 3350 17 GM PACK PO (21:23)
[2022-08-16] MEDS: IBUPROFEN 600 MG TABLET PO (21:23)
[2022-08-17 00:52] VITALS: BP 119/81; PULSE 89; RESP 16; TEMP 36.8; O2SAT 97
[2022-08-17] MEDS: ACETAMINOPHEN 500 MG TABLET 1000 MG PO ×4 (01:21→20:47)
[2022-08-17] MEDS: IBUPROFEN 600 MG TABLET PO ×4 (03:28→23:29)
[2022-08-17 04:00] LABS: Basophils Absolute Auto 0.04 K/uL (0.00-0.30); Basophils Percent Auto 0.4 % (0.0-3.0); Eosinophils Absolute Auto 0.14 K/uL (0.00-0.50); Eosinophils Percent Auto 1.3 % (0.0-7.0); Hematocrit 26.4 % (33.0-51.0); Hemoglobin* 8.7 gm/dL (12.0-16.0); Immature Granulocytes Abs Auto 0.14 K/uL (0.00-0.30); Immature Granulocytes Pct Auto 1.3 %; Lymphocytes Absolute Auto 2.21 K/uL (0.90-2.90); Lymphocytes Percent Auto 21.1 % (20-44); Mean Corpuscular HGB Conc 33 gm/dL (32-36); Mean Corpuscular Hemoglobin 31 pg (26-34); Mean Corpuscular Volume 95 fL (80-100); Monocytes Percent Auto 6.7 % (0.0-11.0); Neutrophils Absolute Auto 7.23 K/uL (1.7-7.0); Neutrophils Percent Auto 69.2 % (42.0-72.0); Platelet Count* 184 K/uL (140-440); RDW Coefficient of Variation % 13.8 % (11.5-15.5); Red Blood Count 2.79 m/uL (4.00-5.20); White Blood Count* 10.46 K/uL (4.50-11.00)
[2022-08-17 04:06] LABS: Slide Review Reflex No
[2022-08-17 07:53] VITALS: BP 135/84; PULSE 85; RESP 16; TEMP 37; O2SAT 98
[2022-08-17] MEDS: DOCUSATE SODIUM 100 MG CAPSULE PO (09:04)
--- NOTE | 2022-08-17 11:51 | PM.OBDSVD1 ---
DS: Providers Provider Date Seen: 08/17/22 Date of admission: 08/14/22 10:33 Primary care physician: Sean Núñez MD Admitting Clinician: Mandy Cordero MD Attending Physician on discharge: Candice Verdugo MD Date of Discharge: 08/17/22 DS: Diagnosis Discharge Diagnosis (1) Postoperative anemia due to acute blood loss: Status: Acute Problem details: QBL 2 L. She has received 2 units of packed red cells and 1 unit FFP. Hb 8.7 on POD #2. (2) Status post primary low transverse section: Status: Acute Problem details: For indication of malpresentation in the setting of IOL for pre-eclampsia (3) Pre-eclampsia: Status: Acute Problem details: without severe features. (4) Adenomyomatosis of gallbladder: Status: Acute Problem details: Surgery referral for consideration of cholecystectomy was already placed and patient has seen Dr. Holcomb. (5) Gestational diabetes: Status: Acute Problem details: Diet controlled (6) Conceived by in vitro fertilization: Status: Acute Exam Const: Vital Signs, click to edit/add: Vital Signs - 24 hr 08/16/22 12:38 08/16/22 15:25 08/16/22 19:54 Temperature 98.5 F 99.4 F 98.5 F Pulse Rate 98 Pulse Rate [Pulse Oximeter] 92 91 Respiratory Rate 16 16 16 Blood Pressure 117/76 Blood Pressure [Le ft Arm] 119/80 131/78 Pulse Oximetry 97 97 97 Oxygen Delivery Me thod Room Air Room Air 08/17/22 00:52 08/17/22 07:53 Temperature 98.3 F 98.6 F Pulse Rate Pulse Rate [Pulse Oximeter] 89 85 Respiratory Rate 16 16 Blood Pressure Blood Pressure [Le ft Arm] 119/81 135/84 Pulse Oximetry 97 98 Oxygen Delivery Me thod Room Air Room Air OB - DS: Summary Hospital Course Hospital Course: Alyssa is a 37-year-old G3 now P 1-0-2-1 woman who is status post primary low-transverse on 08/15/2022 at 37 weeks gestation for indication of malpresentation in the setting of preeclampsia without severe features. was complicated by adherent placenta and hemorrhage of 2000 cc. Bakri balloon was placed. OB Problem List: 1. Conceived through IVF. Frozen embryo transfer 11-9-22. 2. Advanced maternal age: 3. Large KYM 4.4 x 2.8 x 5.2 cm. Rec. pelvic rest and avoiding strenuous lifting. 4. H/o abnormal pap and normal colp in 2015 per patient. Patient reports normal pap and neg. HPV 10/2018. No record of this. Pap repeated at first OB and normal. 5. Low lying placenta (1.8 cm from os). Will recheck at 32 week u/s. RESOLVED. Placental edge 2.4cm from internal os. 6. Diagnosed with basal cell carcinoma of the face (beneath right eye). Planning Mohs surgery in September. Patient prefers to wait until delivery to have the procedure done. 7. Gestational DM , diet-controlled 8. Preeclampsia, currently without definite severe features. Elevated BP (140/70) on 07/30/22. 24 hour urine: 550 mg 9. 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 Likely needs cholecystectomy . Low fat diet recommended. Alyssa received a total of 2 u PRBC and 1 u FFP postoperatively. Bakri balloon was removed the evening of postoperative day 1, and bleeding has been scant since that time. Her glucose was 111 yesterday. Blood pressures have been entirely normal for the last 48 hours, with the exception of one systolic blood pressure of 90. She has not used any antihypertensive medication. [] She feels more incisional pain today than she did yesterday. She has been able to walk a little. She is tolerating regular diet and passing flatus. She is her infant daughter, but currently using donor milk due to her milk not being in yet. She is urinating without difficulty. She has a history constipation, and used MiraLax throughout most of her .The patient is a 37 year old G [] P [] at [] weeks gestation that was admitted to the Center on 08/14/22 for []. She had an [uncomplicated/complicated] [vaginal/] delivery. She delivered a viable [male/female] infant. She is [breast/bottle] feeding. the patient has done well. Peripartum Data Procedures: Procedures Operation Date: 08/15/22 05:30 Actual Procedure Side Surgeon p Section Mandy Cordero MD [place] Gender: Female Time Spent with Patient Time attestation: Total time spent providing and/or coordinating discharge services: Discharge Plan Discharge Date of Admission: 08/14/22 10:33 Attending Physician on Admission: Mandy Coredro Primary Care Provider: Sean Núñez Discharge Medications: No Action with DHA-Folic Acid 400-32.5 mcg-mg tablet,chewable 1 tab PO DAILY coenzyme U25-ilukaxx E 100-100 mg-unit capsule 3 cap PO DAILY Rx Instructions: Takes 600mg magnesium 250 mg tablet 250 mg PO QDAY calcium carbonate [Tums] 200 mg calcium (500 mg) tablet,chewable 200 mg PO BID (DME) Blood Glucose Test Strip See Rx Instructions .Route Qty: 50 1RF Rx Instructions: QID (DME) blood-glucose meter [Blood Glucose Monitoring] Kit See Rx Instructions .Route Qty: 1 0RF Rx Instructions: QID (DME) lancets Misc See Rx Instructions .Route Qty: 100 0RF Rx Instructions: qid (DME) Accu-Chek Guide test strips Strip See Rx Instructions .Route Qty: 100 4RF Rx Instructions: As directed Follow Up Appointments: Sean Núñez MD [Primary Care Provider] -
--- NOTE | 2022-08-17 12:16 | P.OBPN_ITS ---
OB - PN:Subj Subjective Date Seen: 08/17/22 Interval history: Alyssa is a 37-year-old G3 now P 1-0-2-1 woman who is status post primary low- transverse on 08/15/2022 at 37 weeks gestation for indication of malpresentation in the setting of preeclampsia without severe features. Cesa rean was complicated by adherent placenta and hemorrhage of 2000 cc. Bakri balloon was placed. OB Problem List: 1. Conceived through IVF. Frozen embryo transfer 12-18-21. 2. Advanced maternal age: 3. Large KYM 4.4 x 2.8 x 5.2 cm. Rec. pelvic rest and avoiding strenuous lifting. 4. H/o abnormal pap and normal colp in 2015 per patient. Patient reports normal pap and neg. HPV 10/2018. No record of this. Pap repeated at first OB and normal. 5. Low lying placenta (1.8 cm from os). Will recheck at 32 week u/s. RESOLVED. Placental edge 2.4cm from internal os. 6. Diagnosed with basal cell carcinoma of the face (beneath right eye). Planning Mohs surgery in September. Patient prefers to wait until delivery to have the procedure done. 7. Gestational DM , diet-controlled 8. Preeclampsia, currently without definite severe features. Elevated BP (140/70) on 07/30/22. 24 hour urine: 550 mg 9. 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 Likely needs cholecystectomy . Low fat diet recommended. Alyssa received a total of 2 u PRBC and 1 u FFP postoperatively. Bakri balloon was removed the evening of postoperative day 1, and bleeding has been scant since that time. Her glucose was 111 yesterday. Blood pressures have been entirely normal for the last 48 hours, with the exception of one systolic blood pressure of 90. She has not used any antihypertensive medication. She is still struggling with incisional pain. Also, her milk is not yet in and she is using donor milk. OB - PN: Obj Exam Physical Exam: Vital signs: Temp Pulse Resp BP Pulse Ox O2 Del Method 98.6 F 85 16 135/84 98 Room Air 08/17/22 07:53 08/17/22 07:53 08/17/22 07:53 08/17/22 07:53 08/17/22 07:53 08/17/22 07:53 Narrative: General: Pleasant, no acute distress Heart: Regular rate and rhythm, no murmur or gallop Lungs: Clear to auscultation bilaterally Abdomen: Soft, nontender, fundus well below umbilicus, normoactive bowel sounds, incision clean, dry, and intact Lower extremities: 3+ edema to bilateral knees, no erythema OB - PN: Obj Data Labs Labs: Laboratory Results - last 24 hr 08/14/22 08/16/22 08/17/22 15:06 16:20 03:55 WBC 12.63 H 10.46 RBC 2.82 L 2.79 L Hgb 8.8 L 8.7 L Hct 26.8 L 26.4 L MCV 95 95 MCH 31 31 MCHC 33 33 RDW Coeff of Cora 13.9 13.8 Plt Count 190 184 Neut % (Auto) 75.9 H 69.2 Lymph % (Auto) 14.6 L 21.1 [place] % (Auto) 6.1 6.7 Eos % (Auto) 1.2 1.3 Baso % (Auto) 0.3 0.4 Neut # (Auto) 9.60 H 7.23 H Lymph # (Auto) 1.80 2.21 [place] # (Auto) 0.80 0.70 Eos # (Auto) 0.20 0.14 Baso # (Auto) 0.00 0.04 Abs Immat Gran (auto) 0.20 0.14 Imm/Tot Granulo (auto) 1.9 1.3 Crossmatch (AHG) See Detail OB - PN: A/P Delivery Assessment and Plan (1) Postoperative anemia due to acute blood loss: Problem details: QBL 2 L. She has received 2 units of packed red cells and 1 unit FFP. Hb 8.7 on POD #2. Status: Acute (2) Status post primary low transverse section: Problem details: For indication of malpresentation in the setting of IOL for pre-eclampsia Status: Acute (3) Pre-eclampsia: Problem details: without severe features. Status: Acute Assessment and Plan: Normotensive and on no medications during course. (4) Adenomyomatosis of gallbladder: Problem details: Surgery referral for consideration of cholecystectomy was already placed and patient has seen Dr. Holcomb. Status: Acute Assessment and Plan: Currently asymptomatic. (5) Gestational diabetes: Problem details: Diet controlled Status: Acute (6) Conceived by in vitro fertilization: Status: Acute Plan Plan: routine care Comments: Anticipate discharge tomorrow, with expectation that her milk will come in in the next day.
[2022-08-17 15:04] VITALS: BP 112/65; PULSE 92; RESP 16; O2SAT 96
[2022-08-17] MEDS: polyethylene glycoL 3350 17 GM PACK PO (20:47)
[2022-08-17 23:30] VITALS: BP 124/76; PULSE 81; RESP 16; TEMP 36.8; O2SAT 98
[2022-08-18 04:07] VITALS: BP 104/66
[2022-08-18] MEDS: ACETAMINOPHEN 500 MG TABLET 1000 MG PO ×2 (04:15→11:52)
[2022-08-18 07:40] VITALS: BP 137/80; PULSE 81; RESP 16; TEMP 36.8; O2SAT 98
[2022-08-18] MEDS: IBUPROFEN 600 MG TABLET PO (07:49)
[2022-08-18] MEDS: OXYCODONE 5 MG TABLET PO ×2 (07:50→11:51)
--- NOTE | 2022-08-18 08:24 | P.DS_ITS ---
DS: Providers Provider Time Seen by Provider: 08:24 Date Seen: 08/18/22 Date of admission: 08/14/22 10:33 Primary care physician: Sean Núñez MD Admitting Clinician: Mandy Cordero MD Attending Physician on discharge: Mandy Cordero MD Date of Discharge: 08/18/22 DS: Diagnosis Discharge Diagnosis (1) Status post primary low transverse section: Status: Acute Problem details: For indication of malpresentation in the setting of IOL for pre-eclampsia (2) Postoperative anemia due to acute blood loss: Status: Acute Problem details: QBL 2 L. She has received 2 units of packed red cells and 1 unit FFP. Hb 8.7 on POD #2. (3) Pre-eclampsia: Status: Acute Problem details: without severe features. (4) Adenomyomatosis of gallbladder: Status: Acute Problem details: Surgery referral for consideration of cholecystectomy was already placed and patient has seen Dr. Holcomb. (5) Gestational diabetes: Status: Acute Problem details: Diet controlled (6) Lactating mother: Status: Acute Exam Narrative: Exam Narrative: VSS. ?Afebrile GENERAL APPEARANCE: ?normal affect, alert, no distress MOOD: ?appropriate HEENT: normocephalic, neck supple, full ROM CHEST: ?Symmetrical chest wall movement. ?Normal respiratory effort. ?Clear to auscultation HEART: ?regular rate and rhythm ABDOMEN: ?soft, non-tender. Uterine fundus is firm, at Umbilicus, Midline and is appropriate for the stage of recovery. ?Bowel sounds present. EXTREMITIES: ?normal and +1 edema SKIN: warm, dry. ? ?Incision clean/dry/well approximated. ?No signs of infection noted. Const: Vital Signs, click to edit/add: Vital Signs - 24 hr 08/17/22 15:04 08/17/22 23:30 08/18/22 04:07 Temperature 98.2 F Pulse Rate [Pulse Oximeter] 92 81 Respiratory Rate 16 16 Blood Pressure [Le ft Arm] 112/65 124/76 104/66 Pulse Oximetry 96 98 Oxygen Delivery Me thod Room Air Room Air 08/18/22 07:40 Temperature 98.2 F Pulse Rate [Pulse Oximeter] 81 Respiratory Rate 16 Blood Pressure [Le ft Arm] 137/80 Pulse Oximetry 98 Oxygen Delivery Me thod Room Air OB - DS: Summary Hospital Course Hospital Course: Alyssa is a 37 y.o. G 3 P 1 who was admitted to [facility] for primary for malpresentation and preeclampsia. ?She had an uncomplicated . ? The patient feels well. ?The pain is well controlled with current medications. ?She has no new complaints. ?She is breast feeding and reports things are going well.? the patient has done well.? Vitals have been stable.? She has remained afebrile.? Has a good appetite, is tolerating a general diet. ?She is voiding without difficulty.? She is passing gas and has not had a bowel movement.? She is ambulating and denies any dizziness.? Has Small amount of rubra lochia. She is planning partner vasectomy for prevention. plan: Discharge home with baby. Follow up in 2 weeks and 6 weeks. , may follow up with if needed PP hemorrhage -Acute anemia, continue iron supplementation every other day for 6 weeks Preeclampsia -BPs WNL at this time -Currently has a headache -Will get preeclampsia labs, if WNL, may DC home -Follow up in 3-5 days for blood pressure check -continue to check blood pressures twice a day Peripartum Data Infant delivery method: Primary C/S; Non-Labored Procedures: Procedures Operation Date: 08/15/22 05:30 Actual Procedure Side Surgeon p Section Mandy Cordero MD complications: none Gender: Female Infant Discharge Plan: Home Status at Discharge Functional status at discharge: independent ambulation Overall status at discharge: patient is progressing back to baseline Time Spent with Patient Time attestation: Total time spent providing and/or coordinating discharge services: Time spent: Less than 30 minutes Discharge Plan Discharge Disposition: Home, Self-Care Date of Admission: 08/14/22 10:33 Attending Provider on Discharge: Sofya Beck Primary Care Provider: Sean Núñez Condition: Stable Anticipated Discharge Date/Time: 08/18/22 11:00 Discharge Medications: New docusate sodium 100 mg Capsule 100 mg PO BID PRNQty: 100 0RF Rx Instructions: Anmol 1 cap 1-2 times a day as needed for constipation ferrous sulfate 325 mg (65 mg iron) Tablet 650 mg PO Q48H Qty: 30 0RF ibuprofen 600 mg Tablet 600 mg PO Q6H PRN (Reason: Pain) Qty: 60 0RF oxycodone 5 mg Tablet 5 - 10 mg PO Q4H PRN (Reason: Pain) Qty: 20 0RF Continued with DHA-Folic Acid 400-32.5 mcg-mg tablet,chewable 1 tab PO DAILY coenzyme [id number]-zboftce E 100-100 mg-unit capsule 3 cap PO DAILY Rx Instructions: Takes 600mg magnesium 250 mg tablet 250 mg PO QDAY calcium carbonate [Tums] 200 mg calcium (500 mg) tablet,chewable 200 mg PO BID Discontinued (DME) Blood Glucose Test Strip See Rx Instructions .Route Qty: 50 1RF Rx Instructions: QID (DME) blood-glucose meter [Blood Glucose Monitoring] Kit See Rx Instructions .Route Qty: 1 0RF Rx Instructions: QID (DME) lancets Misc See Rx Instructions .Route Qty: 100 0RF Rx Instructions: qid (DME) Accu-Chek Guide test strips Strip See Rx Instructions .Route Qty: 100 4RF Rx Instructions: As directed Discharge Orders: Discharge Order (Routine); Ordered 08/18/22 Ordered By: Sofya Beck Patient Education: OB Over the Counter Medication Information, OB /Breast Feeding Additional Instructions: Follow up in 3-5 days for a blood pressure check Monitor blood pressures twice a day. Call if 140/90 or higher Call for signs of preeclampsia - headache, vision changes, pain on right side where ribs end. No driving while taking oxycodone and until you can comfortably slam on the breaks in an emergency. Activity Level: Activity as Tolerated Discharge Diet: Regular Follow Up Appointments: Sean Núñez MD [Primary Care Provider] - Forms: [employer] Info Instructions
[2022-08-18 09:18] LABS: Hematocrit 30.6 % (33.0-51.0); Hemoglobin* 9.9 gm/dL (12.0-16.0); Mean Corpuscular HGB Conc 32 gm/dL (32-36); Mean Corpuscular Hemoglobin 31 pg (26-34); Mean Corpuscular Volume 94 fL (80-100); Platelet Count* 268 K/uL (140-440); Red Blood Count 3.25 m/uL (4.00-5.20); White Blood Count* 9.45 K/uL (4.50-11.00)
[2022-08-18 09:22] LABS: Slide Review Reflex No
[2022-08-18 10:19] LABS: Blood Urea Nitrogen* 7 mg/dL (5-24); Creatinine* 0.6 mg/dL (0.5-1.5); Est. Creatinine Clearance* 110.86; Estimated Glomerular Filt Rate 118 ml/min
[2022-08-18] MEDS: FERROUS SULFATE 325 MG TABLET 650 MG PO (10:19)
[2022-08-18 10:20] LABS: Alanine Aminotransferase* 25 U/L (4-35); Aspartate Amino Transferase* 63 U/L (12-35)
== END 2022-08-18 12:10 | disposition home or self-care (01) | DRG 787 ==
LOC: OB OUT 10:34 → OB 10:34
PROVIDERS: Advanced Practice Midwife; Obstetrics & Gynecology; Admitting Provider Obstetrics & Gynecology; PCP Family Medicine; Visit Provider Obstetrics & Gynecology
PROC: 10D00Z1 Extraction of Products of Conception, Low, Open Approach (ICD-10-PCS; CPT 59514; principal; 2022-08-15 05:15)
DX: O14.04 Mild to moderate pre-eclampsia, complicating childbirth (principal); D62 Acute posthemorrhagic anemia; O24.420 Gestational diabetes mellitus in childbirth, diet controlled; O72.0 Third-stage hemorrhage; O32.2XX0 Maternal care for transverse and oblique lie, not applicable or unspecified; O32.8XX0 Maternal care for other malpresentation of fetus, not applicable or unspecified; O90.81 Anemia of the puerperium; C44.319 Basal cell carcinoma of skin of other parts of face; O99.62 Diseases of the digestive system complicating childbirth; K82.8 Other specified diseases of gallbladder; Z3A.36 36 weeks gestation of pregnancy; Z37.0 Single live birth; G89.18 Other acute postprocedural pain
CPT/HCPCS: 01961; 36415; 36430; 59200; 59412; 64488; 76815; 76942; 82565; 82947; 84450; 84460; 84520; 85018; 85025; 85027; 85384; 85610; 85730; 86850; 86900; 86901; 86922; 88307; 99140; A9270; C9290; J0456; J0665; J1885; J2270; J2274; J2371; J2405; J2590; J3105; J7050; J7120; P9016; P9017

== ENCOUNTER 2022-08-19 22:12 | Emergency (ER) | payer OTHER, SELFPAY ==
[2022-08-19] VITALS (11 sets, daily range): BP systolic 120–153; BP diastolic 76–92; PULSE 84–101; RESP 16–18; TEMP 36.6; O2SAT 96–99; BMI 32.1
[2022-08-19 23:10] LABS: Basophils Absolute Auto 0.04 K/uL (0.00-0.30); Basophils Percent Auto 0.5 % (0.0-3.0); Eosinophils Absolute Auto 0.22 K/uL (0.00-0.50); Eosinophils Percent Auto 2.5 % (0.0-7.0); Hematocrit 31.3 % (33.0-51.0); Hemoglobin* 10.1 gm/dL (12.0-16.0); Immature Granulocytes Abs Auto 0.31 K/uL (0.00-0.30); Immature Granulocytes Pct Auto 3.6 %; Lymphocytes Absolute Auto 2.27 K/uL (0.90-2.90); Mean Corpuscular HGB Conc 32 gm/dL (32-36); Mean Corpuscular Hemoglobin 30 pg (26-34); Mean Corpuscular Volume 94 fL (80-100); Monocytes Percent Auto 7.3 % (0.0-11.0); Neutrophils Absolute Auto 5.25 K/uL (1.7-7.0); Neutrophils Percent Auto 60.1 % (42.0-72.0); Platelet Count* 299 K/uL (140-440); RDW Coefficient of Variation % 13.3 % (11.5-15.5); Red Blood Count 3.34 m/uL (4.00-5.20); White Blood Count* 8.73 K/uL (4.50-11.00)
[2022-08-19 23:37] LABS: Slide Review Reflex No
--- NOTE | 2022-08-19 23:40 | ED.GENADULT ---
HPI - General Adult General Date Seen: 08/19/22 Chief complaint: Post OB/Post- Complication Stated complaint: Pre-eclampsia symptoms Time Seen by Provider: 08/19/22 22:51 Source: patient and family Mode of arrival: ambulatory Limitations: no limitations History of Present Illness HPI narrative: Patient is a 37-year-old who underwent an on planned on 08/14/2022 due to malpresentation preeclampsia. She had a hemorrhage in was transfused 2 units. She was discharged on 08/18/2022. Preeclampsia labs were done prior to discharge in those were normal. She has had a headache basically since her delivery. The headache got worse today and she has now developed worsening lower extremity swelling. Her blood pressure at home was 160 systolic. She was scheduled to come in tomorrow for a blood pressure check and labs. Unclear if she is seeing a provider or just a nurse visit. She was instructed to come to the hospital if her blood pressure was elevated which is why she is here. She is taking oxycodone and ibuprofen for incisional pain but it does not help her headache. Her headache does not improve when she lies supine. Related Data Home Medications Medication Instructions Recorded Confirmed coenzyme [id number]-[id number] E 100 mg-100 3 cap PO DAILY 01/28/22 08/19/22 unit capsule 103-folic acid 400 1 tab PO DAILY 01/28/22 08/19/22 mcg-omeg3 32.5 mg-dha-fish oil chew tablet ( with DHA and Folic Acid) magnesium 250 mg tablet 250 mg PO QDAY 03/04/22 08/19/22 calcium carbonate 200 mg calcium 200 mg PO BID 04/29/22 08/19/22 (500 mg) chewable tablet (Tums) Previous Rx's Medication Instructions Recorded docusate sodium 100 mg capsule 100 mg PO BID PRN #100 caps 08/18/22 ferrous sulfate 325 mg (65 mg 650 mg (2 x 325 mg (65 mg iron)) 08/18/22 iron) tablet PO Q48H #30 tabs ibuprofen 600 mg tablet 600 mg PO Q6H PRN Pain #60 tabs 08/18/22 oxycodone 5 mg tablet 5 - 10 mg (1 - 2 x 5 mg) PO Q4H 08/18/22 PRN Pain #20 tabs nifedipine 30 mg tablet,extended 30 mg PO DAILY #30 tabs 08/20/22 release Allergies Allergy/AdvReac Type Severity Reaction Status Date / Time influenza virus vaccine, Allergy Severe Arm Verified 08/19/22 22:24 specific swelling, numbness and tingling lactose AdvReac Intermediate Gastrointestinal Verified 08/19/22 22:24 Upset Review of Systems Narrative: Review of systems is outlined above otherwise noted to be negative. No pre-existing history of hypertension. No chest pain or shortness of breath. PFSH PFS Medical History (Updated 08/19/22 @ 23:54 by Sean Núñez MD) Recurrent major depressive disorder ?F33.9 - Major depressive disorder, recurrent, unspecified (ICD-10) History of abnormal cervical Papanicolaou smear (10/12/15) ?Z87.42 - Personal history of other diseases of the female genital tract (ICD-10) Fibrocystic breast changes ?N60.19 - Diffuse cystic mastopathy of unspecified breast (ICD-10) Female infertility ?N97.9 - Female infertility, unspecified (ICD-10) Anxiety ?F41.9 - Anxiety disorder, unspecified (ICD-10) Surgical History (Updated 08/19/22 @ 00:01 by Gee Hein) History of loop electrical excision procedure (LEEP) (12/04/15) ?Z98.890 - Other specified postprocedural states (ICD-10) History of laparoscopy (2019) ?Z98.890 - Other specified postprocedural states (ICD-10) Family History Father Coronary artery disease Social History (Updated 01/22/22 @ 08:58 by Suzi Mitchell) Narrative: . 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 What is your current living situation?: I presently have a place to live Problems where you live: no known problems In the past 12 months, utilities in danger of being shut off: no In the past 12 mos, have been you worried that your food would run out before you had money to buy more?: never true In the past 12 mos, the food you bought just didn't last and you didn't have money to buy more?: never true Smoking Status: Never smoker Do you use any of these nicotine containing products: None Second hand tobacco smoke exposure: No How often do you have a drink containing alcohol: never AUDIT-C Alcohol total score: 0 Non-prescribed substance use: denies use How often does anyone, including family, friends and others, physically hurt you: never How often does anyone, including family, friends and others, insult or talk down to you: never How often does anyone, including family, friends and others, threaten you with harm: never How often does anyone, including family, friends and others, scream or curse at you: never Little interest or pleasure in doing things: not at all Feeling down, depressed, or hopeless: several days Exam Narrative: Exam Narrative: Vitals noted. She is in no distress. Initial blood pressure 153/92. Without intervention has dropped to 121/85. Lungs: Clear to auscultation in all mason. No wheezes, rales, rhonchi. Heart: Regular rate and rhythm without murmur. Abdomen: Soft and nontender. No guarding, rigidity, rebound. Bowel sounds are normal. I did not undress her incision. Extremities: She has 2+ edema of her feet and ankles, nothing more proximal. Good distal pulses. Skin: No abnormalities noted of the exposed skin. Neurologic: Awake, alert, fully oriented. Neurologic exam is nonfocal. Const: Vital Signs, click to edit/add: Vital Signs - 24 hr 08/19/22 22:16 08/19/22 22:59 Temperature 97.9 F Pulse Rate [Pulse Oximeter] 101 H 97 Respiratory Rate 18 16 Blood Pressure [Ri ght Upper Arm] 153/92 H 121/85 Pulse Oximetry 99 97 Oxygen Delivery Me thod Room Air Room Air Course Course Hospital Course: Patient is seen and examined. Labs are ordered. Reevaluation(s) Reevaluation #1: Labs are unremarkable. Hemoglobin is up to 10.1. Platelet count is normal. BMP and LFTs are essentially normal. AST is 53 and ALT is 42 which are not changed significantly from yesterday. I did speak with Dr. Verdugo on the phone and she suggested starting nifedipine ER 30 mg daily. First dose is given in the department. She has follow-up scheduled for tomorrow. Vital Signs Vital signs: Initial Vital Signs Temperature 97.9 F 08/19/22 22:16 Temperature Source Temporal Artery Scan 08/19/22 22:16 Pulse Rate 101 H 08/19/22 22:16 Respiratory Rate 18 08/19/22 22:16 Blood Pressure 153/92 H 08/19/22 22:16 Blood Pressure Mean 112 H 08/19/22 22:16 Blood Pressure Position Sitting 08/19/22 22:16 Pulse Oximetry 99 08/19/22 22:16 Oxygen Delivery Method Room Air 08/19/22 22:16 Vital Signs Temperature 97.9 F 08/19/22 22:16 Pulse Rate 101 H 08/19/22 22:16 Respiratory Rate 18 08/19/22 22:16 Blood Pressure 153/92 H 08/19/22 22:16 Pulse Oximetry 99 08/19/22 22:16 Oxygen Delivery Method Room Air 08/19/22 22:16 Temperature 97.9 F 08/19/22 22:16 Pulse Rate 97 08/19/22 22:59 Respiratory Rate 16 08/19/22 22:59 Blood Pressure 121/85 08/19/22 22:59 Pulse Oximetry 97 08/19/22 22:59 Oxygen Delivery Method Room Air 08/19/22 22:59 Medical Decision Making Lab Data Labs: Lab Results 08/19/22 Range/Units 23:00 WBC 8.73 (4.50-11.00) K/uL RBC 3.34 L (4.00-5.20) m/uL Hgb 10.1 L (12.0-16.0) gm/dL Hct 31.3 L (33.0-51.0) % MCV 94 (80-100) fL MCH 30 (26-34) pg MCHC 32 (32-36) gm/dL RDW Coeff of Cora 13.3 (11.5-15.5) % Plt Count 299 (140-440) K/uL Neut % (Auto) 60.1 (42.0-72.0) % Lymph % (Auto) 26.0 (20-44) % [place] % (Auto) 7.3 (0.0-11.0) % Eos % (Auto) 2.5 (0.0-7.0) % Baso % (Auto) 0.5 (0.0-3.0) % Neut # (Auto) 5.25 (1.7-7.0) K/uL Lymph # (Auto) 2.27 (0.90-2.90) K/uL [place] # (Auto) 0.60 (0.00-0.90) K/UL Eos # (Auto) 0.22 (0.00-0.50) K/uL Baso # (Auto) 0.04 (0.00-0.30) K/uL Abs Immat Gran (auto) 0.31 H (0.00-0.30) K/uL Imm/Tot Granulo (auto) 3.6 % Sodium 137 (135-149) mmol/L Potassium 3.4 L (3.6-5.1) mmol/L Chloride 104 (96-114) mmol/L Carbon Dioxide 24 (20-32) mmol/L BUN 14 (5-24) mg/dL Creatinine 0.6 (0.5-1.5) mg/dL Estimated Creat Clear 110.86 Estimated GFR 118 ml/min Glucose 104 (60-115) mg/dL Calcium 8.9 (8.4-10.6) mg/dL Total Bilirubin 0.4 (0.1-1.5) mg/dL Direct Bilirubin 0.1 (0.0-0.5) mg/dL AST 53 H (12-35) U/L ALT 42 H (4-35) U/L Alkaline Phosphatase 86 (40-150) U/L Total Protein 5.9 L (6.0-8.3) g/dL Albumin 3.3 (3.3-5.0) g/dL Discharge Plan Discharge Clinical Impression: Pre-eclampsia Patient Disposition: Home, Self-Care Condition: Stable Additional Instructions: Rest, hydrate, elevate your legs. Start nifedipine ER 30 mg daily. Keep your follow-up appointment tomorrow. Prescriptions: New nifedipine 30 mg tablet extended release 30 mg PO DAILY Qty: 30 0RF No Action with DHA-Folic Acid 400-32.5 mcg-mg tablet,chewable 1 tab PO DAILY coenzyme K85-rrwxwoo E 100-100 mg-unit capsule 3 cap PO DAILY Rx Instructions: Takes 600mg magnesium 250 mg tablet 250 mg PO QDAY Hold Instructions: Order Change calcium carbonate [Tums] 200 mg calcium (500 mg) tablet,chewable 200 mg PO BID Hold Instructions: Order Change docusate sodium 100 mg Capsule 100 mg PO BID PRNQty: 100 0RF Rx Instructions: Anmol 1 cap 1-2 times a day as needed for constipation ferrous sulfate 325 mg (65 mg iron) Tablet 650 mg PO Q48H Qty: 30 0RF ibuprofen 600 mg Tablet 600 mg PO Q6H PRN (Reason: Pain) Qty: 60 0RF oxycodone 5 mg Tablet 5 - 10 mg PO Q4H PRN (Reason: Pain) Qty: 20 0RF Follow Up/Referrals: Sean Núñez MD [Primary Care Provider] - Stand Alone Forms: [employer] Info Instructions
[2022-08-19 23:42] LABS: Blood Urea Nitrogen* 14 mg/dL (5-24); Carbon Dioxide* 24 mmol/L (20-32); Chloride* 104 mmol/L (96-114); Creatinine* 0.6 mg/dL (0.5-1.5); Est. Creatinine Clearance* 110.86; Estimated Glomerular Filt Rate 118 ml/min; Potassium* 3.4 mmol/L (3.6-5.1); Sodium* 137 mmol/L (135-149)
[2022-08-19 23:43] LABS: Alanine Aminotransferase* 42 U/L (4-35); Albumin* 3.3 g/dL (3.3-5.0); Alkaline Phosphatase* 86 U/L (40-150); Aspartate Amino Transferase* 53 U/L (12-35); Bilirubin Direct* 0.1 mg/dL (0.0-0.5); Bilirubin Total* 0.4 mg/dL (0.1-1.5); Calcium* 8.9 mg/dL (8.4-10.6); Glucose* 104 mg/dL (60-115); Total Protein* 5.9 g/dL (6.0-8.3)
[2022-08-20 00:02] VITALS: BP 140/95; PULSE 91; O2SAT 98
[2022-08-20] MEDS: NIFEdipine 30 MG TAB.ER.24 PO (00:07)
== END 2022-08-20 00:12 | disposition home or self-care (01) ==
PROVIDERS: Emergency Provider Family Medicine; PCP Family Medicine
DX: O14.95 Unspecified pre-eclampsia, complicating the puerperium (principal)
CPT/HCPCS: 36415; 80048; 80076; 81003; 85025; 99282; 99283; 99284; A9270

== ENCOUNTER 2022-08-20 17:05 | Inpatient (IN) | payer OTHER, SELFPAY ==
--- NOTE | 2022-08-20 17:11 | PM.OBCN1 ---
OB - CN: HPI Date of Consult Time Seen by Provider: 17:11 Date Seen: 08/20/22 Patient: [facility] Patient Consult date: 08/20/22 Requesting Physician: Mandy Cordero MD Primary Care Provider: Sean Núñez MD Consult Narrative Reason for consult: other ( preeclampsia with severe features) Narrative: The patient is a 37 year old G 1 P 1001 who is on her postoperative day number 5 after primary low-transverse section performed on 08/15/2022 due to malpresentation. Patient had been admitted for induction of labor in the setting of preeclampsia without severe features, surgery was complicated by uterine atony and hemorrhage, suspected abnormal placentation. Patient became anemic and received 2 units of PRBC and 1 unit of FFP. Patient was discharged home on her postop day 3. At this time patient was found with had some elevated blood pressures during laboring process but blood pressures remain normal. Patient does state that she had started to experience a headache the day of discharge, preeclampsia labs were completed and ALT was found to be slightly elevated, since her blood pressures have remained normal recommendation was given to treat headache with Tylenol and to continue close monitoring of her blood pressures at home. Patient states that yesterday she did have 1 blood pressure with the systolic in the 160s and she was concerned about persistent headache. Patient visited the ER last night and was recommended a follow-up today in our clinic. Today in our clinic patient complained worsening lower extremity swelling, headache that is not going away with acetaminophen, ibuprofen, oxycodone. Preeclampsia labs were repeated and transaminitis trending upwards. Recommendation was given for readmission to the hospital due to preeclampsia with severe features. History History 3 Elective abortions Para 1 Spontaneous abortions Hx # Term Pregnancies Ectopic pregnancies Hx # Pregnancies Multiple births Number of Living Children 0 PFSH PFSH Medical History Recurrent major depressive disorder ?F33.9 - Major depressive disorder, recurrent, unspecified (ICD-10) History of abnormal cervical Papanicolaou smear (10/12/15) ?Z87.42 - Personal history of other diseases of the female genital tract (ICD-10) Fibrocystic breast changes ?N60.19 - Diffuse cystic mastopathy of unspecified breast (ICD-10) Female infertility ?N97.9 - Female infertility, unspecified (ICD-10) Anxiety ?F41.9 - Anxiety disorder, unspecified (ICD-10) Surgical History History of loop electrical excision procedure (LEEP) (12/04/15) ?Z98.890 - Other specified postprocedural states (ICD-10) History of laparoscopy (2020) ?Z98.890 - Other specified postprocedural states (ICD-10) Family History Father Coronary artery disease Social History Narrative: . 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 What is your current living situation?: I presently have a place to live Problems where you live: no known problems In the past 12 months, utilities in danger of being shut off: no In the past 12 mos, have been you worried that your food would run out before you had money to buy more?: never true In the past 12 mos, the food you bought just didn't last and you didn't have money to buy more?: never true Smoking Status: Never smoker Do you use any of these nicotine containing products: None Second hand tobacco smoke exposure: No How often do you have a drink containing alcohol: never AUDIT-C Alcohol total score: 0 Non-prescribed substance use: denies use How often does anyone, including family, friends and others, physically hurt you: never How often does anyone, including family, friends and others, insult or talk down to you: never How often does anyone, including family, friends and others, threaten you with harm: never How often does anyone, including family, friends and others, scream or curse at you: never Little interest or pleasure in doing things: not at all Feeling down, depressed, or hopeless: several days Meds Home Medications and Allergies Home Medications Medication Instructions Recorded Confirmed Type coenzyme [id number]-jlqibsa E 100 mg-100 3 cap PO DAILY 01/28/22 08/20/22 History unit capsule 103-folic acid 400 1 tab PO DAILY 01/28/22 08/20/22 History mcg-omeg3 32.5 mg-dha-fish oil chew tablet ( with DHA and Folic Acid) Allergies Allergy/AdvReac Type Severity Reaction Status Date / Time influenza virus vaccine, Allergy Severe Arm Verified 08/20/22 10:53 specific swelling, numbness and tingling lactose AdvReac Intermediate Gastrointestinal Verified 08/20/22 10:53 Upset OB - H&P: Exam Physical Exam: Vital signs: VITAL SIGNS: As noted above. GENERAL APPEARANCE: Alert, cooperative female in no acute distress. MOOD & AFFECT: Normal. HEART: Regular rate and rhythm without murmurs. LUNGS: Lungs are clear to auscultation bilaterally. No crackles, wheezes, or rhonchi. ABDOMEN: Soft, non-distended and appropriately tender. Incision healing well no surrounding erythema, induration or abnormal discharge. : Scant bleeding. EXTREMITIES: Bilateral pitting edema +2, Well perfused. Nontender. NEURO: Intact. OB - Results Labs Labs: Labs 08/20/22 at 2:30pm: Hemoglobin: 11.2 mg/dL, platelets: [id number], BUN: 14, creatinine: 0.7, AST: 59 from 53, ALT: 50 from 42 OB - CN: A/P Assessment and Plan (1) Preeclampsia in period: Problem details: Preeclampsia with severe features Status: Acute Plan 1. IV Magnesium sulfate infusion for 24 hours for seizure prophylaxis. 2. Procardia ER 30mg BID, will treat severely elevated BPs with IV antihypertensive medications per protocol if needed. 3. Strict I/O. 4. HELLP labs every 6 hours while on magnesium. 5. Will treat headache with Toradol, Reglan and Benadryl x1. Will continue PO ibuprofen, acetaminophen and oxycodone for management of post op pain as usual. 6. SCDs while in bed. 7. Continue to support . 8. We discussed that recommendation would be admission until Thursday morning at least.
[2022-08-20 17:28] VITALS: BP 160/89; PULSE 95; RESP 16; TEMP 36.5; O2SAT 97
[2022-08-20] MEDS: LACTATED RINGERS 1000 ML 1,000 ML 75 ML IV (17:28)
[2022-08-20] MEDS: MAGNESIUM IV 4 GM/100 ML PIGGYBACK IVPB (17:28)
[2022-08-20 17:43] VITALS: BP 129/81; PULSE 94; RESP 16; O2SAT 97
[2022-08-20] MEDS: KETOROLAC 15 MG/ML inj IVP (18:10)
[2022-08-20 18:13] VITALS: BP 131/82; PULSE 91; RESP 16; O2SAT 97
[2022-08-20] MEDS: METOCLOPRAMIDE HCL 5 MG/ML INJ 10 MG IVP (18:13)
[2022-08-20] MEDS: diphenhydrAMINE 50 MG/ML inj 12.5 MG IVP (18:15)
[2022-08-20] MEDS: ACETAMINOPHEN 500 MG TABLET 1000 MG PO (18:27)
[2022-08-20 18:28] VITALS: BP 129/83; PULSE 93; RESP 16; O2SAT 96
[2022-08-20 18:38] VITALS: BMI 31.1
[2022-08-20 18:45] VITALS: BP 129/82; PULSE 97; RESP 16; TEMP 36.6; O2SAT 95
[2022-08-20 20:36] VITALS: BP 117/73; PULSE 96; RESP 16; TEMP 36.6; O2SAT 96
[2022-08-20] MEDS: NIFEdipine 30 MG TAB.ER.24 PO (20:42)
[2022-08-20 23:40] LABS: Hematocrit 32.5 % (33.0-51.0); Hemoglobin* 10.6 gm/dL (12.0-16.0); Mean Corpuscular HGB Conc 33 gm/dL (32-36); Mean Corpuscular Hemoglobin 31 pg (26-34); Mean Corpuscular Volume 93 fL (80-100); Platelet Count* 321 K/uL (140-440); Red Blood Count 3.48 m/uL (4.00-5.20); White Blood Count* 9.47 K/uL (4.50-11.00)
[2022-08-20 23:41] LABS: Slide Review Reflex No
[2022-08-20 23:54] LABS: Aspartate Amino Transferase* 58 U/L (12-35); Creatinine* 0.6 mg/dL (0.5-1.5); Est. Creatinine Clearance* 110.86; Estimated Glomerular Filt Rate 118 ml/min
[2022-08-20 23:55] LABS: Alanine Aminotransferase* 47 U/L (4-35); Blood Urea Nitrogen* 15 mg/dL (5-24)
[2022-08-21] MEDS: OXYCODONE 5 MG TABLET PO ×6 (00:22→20:06)
[2022-08-21] MEDS: ACETAMINOPHEN 500 MG TABLET 1000 MG PO ×4 (00:23→20:05)
[2022-08-21 00:26] VITALS: BP 130/86; PULSE 88; RESP 14; TEMP 36.4; O2SAT 96
[2022-08-21 02:20] LABS: Magnesium* 5.6 mg/dL (1.5-2.6)
[2022-08-21] MEDS: IBUPROFEN 600 MG TABLET PO ×4 (04:03→22:58)
[2022-08-21 04:05] VITALS: BP 125/82; PULSE 91; RESP 16; TEMP 36.4; O2SAT 97
[2022-08-21] MEDS: LACTATED RINGERS 1000 ML 1,000 ML 75 ML IV (04:54)
[2022-08-21 05:24] LABS: Hematocrit 33.1 % (33.0-51.0); Hemoglobin* 10.8 gm/dL (12.0-16.0); Mean Corpuscular HGB Conc 33 gm/dL (32-36); Mean Corpuscular Hemoglobin 31 pg (26-34); Mean Corpuscular Volume 95 fL (80-100); Platelet Count* 350 K/uL (140-440); White Blood Count* 8.77 K/uL (4.50-11.00)
[2022-08-21 05:28] LABS: Slide Review Reflex No
[2022-08-21 05:37] LABS: Aspartate Amino Transferase* 59 U/L (12-35); Blood Urea Nitrogen* 12 mg/dL (5-24); Creatinine* 0.6 mg/dL (0.5-1.5); Est. Creatinine Clearance* 110.86; Estimated Glomerular Filt Rate 118 ml/min
[2022-08-21 05:38] LABS: Alanine Aminotransferase* 49 U/L (4-35)
[2022-08-21 05:54] LABS: Magnesium* 6.2 mg/dL (1.5-2.6)
[2022-08-21] MEDS: NIFEdipine 30 MG TAB.ER.24 PO ×2 (08:40→21:08)
--- NOTE | 2022-08-21 08:49 | PM.OBPNVD1 ---
OB - PN:Subj Subjective Time Seen by Provider: 08:25 Date Seen: 08/21/22 Patient comments OB post-: tolerating diet, flatus present and other (Continues to have a severe headache that is not responding to Tylenol, ibuprofen or oxycodone. The patient has a history of migraines for which sleep deprivation is a trigger. She has taken Imitrex in the past to break headaches so I a.m. going to do a trial of Imitrex to see if this helps her he) [place] feeding status: breast and bottle feeding OB - PN: Obj Exam Physical Exam: Vital signs: Temp Pulse Resp BP Pulse Ox O2 Del Method 97.5 F L 91 16 125/82 97 Room Air 08/21/22 04:05 08/21/22 04:05 08/21/22 04:05 08/21/22 04:05 08/21/22 04:05 08/21/22 04:05 Narrative: General: Pleasant, , well groomed woman in no acute distress. Appears tired. Vital signs: Included in her medical record. Blood pressures have been 120s-130s/70s-80s since starting nifedipine ER yesterday. Cardiac: Regular rate and rhythm without gallop, rub or murmur. Chest: Clear to auscultation bilaterally without wheezes, rales or rhonchi. Abdomen: Soft, nontender, nondistended with normal bowel sounds throughout. Fundus firm 4 cm below the umbilicus in the midline. Incision: Clean, dry and intact with sutures and skin adhesive gel. Extremities: 1-2 +bilateral lower extremity edema to the mid valenzuela. Nontender. OB - PN: Obj Data Labs Labs: Laboratory Results - last 24 hr 08/20/22 08/21/22 23:35 05:05 WBC 9.47 8.77 RBC 3.48 L 3.50 L Hgb 10.6 L 10.8 L Hct 32.5 L 33.1 MCV 93 95 MCH 31 31 MCHC 33 33 Plt Count 321 350 BUN 15 12 Creatinine 0.6 0.6 Estimated Creat Clear 110.86 110.86 Estimated GFR 118 118 Magnesium 5.6 H* 6.2 H* AST 58 H 59 H ALT 47 H 49 H OB - PN: A/P Delivery Assessment and Plan (1) Preeclampsia in period: Problem details: Preeclampsia with severe features Status: Acute Plan 1. Continue magnesium sulfate until 5:00 p.m. today. 2. Plan to discharge the patient tomorrow after off of magnesium for at least 12 hours. 3. Will recommend the patient return to the clinic for blood pressure check on Thursday or Thursday next week. 4. Trial of Imitrex 50 mg p.o. every 2 hours as needed for headache maximum dose in 24 hours: 200 mg
[2022-08-21] MEDS: SUMAtriptan succinate 50 MG TABLET PO ×2 (09:11→23:57)
[2022-08-21 09:57] VITALS: BP 118/79; PULSE 96; RESP 16; TEMP 36.8; O2SAT 96
[2022-08-21 12:03] LABS: Hematocrit 35.3 % (33.0-51.0); Hemoglobin* 11.5 gm/dL (12.0-16.0); Mean Corpuscular HGB Conc 33 gm/dL (32-36); Mean Corpuscular Hemoglobin 31 pg (26-34); Mean Corpuscular Volume 94 fL (80-100); Platelet Count* 360 K/uL (140-440); Red Blood Count 3.74 m/uL (4.00-5.20); Slide Review Reflex No; White Blood Count* 9.38 K/uL (4.50-11.00)
[2022-08-21 12:26] LABS: Aspartate Amino Transferase* 60 U/L (12-35); Creatinine* 0.6 mg/dL (0.5-1.5); Est. Creatinine Clearance* 110.86; Estimated Glomerular Filt Rate 118 ml/min
[2022-08-21 12:27] LABS: Alanine Aminotransferase* 52 U/L (4-35); Blood Urea Nitrogen* 10 mg/dL (5-24)
[2022-08-21 12:34] VITALS: BP 105/70; PULSE 84; RESP 16; TEMP 36.7; O2SAT 96
[2022-08-21 12:47] LABS: Magnesium* 6.8 mg/dL (1.5-2.6)
[2022-08-21 16:01] VITALS: BP 134/85; PULSE 99; RESP 16; TEMP 36.7; O2SAT 96
[2022-08-21 20:00] VITALS: BP 124/79; PULSE 85; RESP 16; TEMP 36.8; O2SAT 96
[2022-08-22] VITALS: BP 98/54; PULSE 80; RESP 16; TEMP 36.9; O2SAT 97
[2022-08-22 04:12] VITALS: BP 90/54; PULSE 76; RESP 16; TEMP 37.1; O2SAT 96
[2022-08-22 05:26] LABS: Hematocrit 34.1 % (33.0-51.0); Mean Corpuscular HGB Conc 32 gm/dL (32-36); Mean Corpuscular Hemoglobin 31 pg (26-34); Mean Corpuscular Volume 95 fL (80-100); Platelet Count* 323 K/uL (140-440); Red Blood Count 3.61 m/uL (4.00-5.20); White Blood Count* 8.64 K/uL (4.50-11.00)
[2022-08-22 05:27] LABS: Slide Review Reflex No
[2022-08-22 05:41] LABS: Alanine Aminotransferase* 42 U/L (4-35); Aspartate Amino Transferase* 43 U/L (12-35); Blood Urea Nitrogen* 10 mg/dL (5-24); Creatinine* 0.5 mg/dL (0.5-1.5); Est. Creatinine Clearance* 133.03; Estimated Glomerular Filt Rate 124 ml/min
[2022-08-22 08:06] VITALS: BP 109/76; PULSE 86; RESP 16; TEMP 37; O2SAT 98
[2022-08-22] MEDS: IBUPROFEN 600 MG TABLET PO (08:15)
--- NOTE | 2022-08-22 08:33 | W.PM.OB.MED ---
DS: Providers Provider Time Seen by Provider: 08:15 Date Seen: 08/22/22 Date of admission: 08/20/22 17:05 Primary care physician: Sean Núñez MD Admitting Clinician: Mandy Cordero MD Attending Physician on discharge: Mandy Cordero MD Date of Discharge: 08/22/22 DS: Diagnosis Discharge Diagnosis (1) Preeclampsia in period: Status: Acute Problem details: Preeclampsia with severe features Discharge Plan Discharge Disposition: Home, Self-Care Date of Admission: 08/20/22 17:05 Attending Provider on Discharge: Mandy Cordero Primary Care Provider: Sean Núñez Condition: Stable Anticipated Discharge Date/Time: 08/22/22 08:39 Discharge Medications: New nifedipine 30 mg Tablet Extended Release 24hr 30 mg PO BID Qty: 30 0RF sumatriptan succinate 50 mg Tablet 50 mg PO Q2H PRN (Reason: headache) Qty: 15 0RF Continued with DHA-Folic Acid 400-32.5 mcg-mg tablet,chewable 1 tab PO DAILY coenzyme [id number] E 100-100 mg-unit capsule 3 cap PO DAILY Rx Instructions: Takes 600mg docusate sodium 100 mg Capsule 100 mg PO BID PRNQty: 100 0RF Rx Instructions: Anmol 1 cap 1-2 times a day as needed for constipation ibuprofen 600 mg Tablet 600 mg PO Q6H PRN (Reason: Pain) Qty: 60 0RF oxycodone 5 mg Tablet 5 - 10 mg PO Q4H PRN (Reason: Pain) Qty: 20 0RF Discontinued ferrous sulfate 325 mg (65 mg iron) Tablet 650 mg PO Q48H Qty: 30 0RF nifedipine 30 mg tablet extended release 30 mg PO DAILY Qty: 30 0RF Discharge Orders: Discharge Order (Routine); Ordered 08/22/22 Ordered By: Mandy Cordero Patient Education: Preeclampsia and Eclampsia After Delivery (GEN) Activity Level: No Weight Bearing Activity Detail: No heavy lifting more than 15 pounds for the next 6 weeks, nothing vaginally for 6 weeks Discharge Diet: Regular Follow Up Appointments: Sean Núñez MD [Primary Care Provider] - Forms: MyHealth Info Instructions Discharge Comments: Follow up in clinic next Thursday or Thursday for BP check, follow up in 6 weeks for routine visit. Hospital Course Course Hospital Course: Alyssa is a 37 y.o. who was re admitted to [facility] due to preeclampsia with severe features. ?She is POD #7. Readmitted on POD #5 due to unremitting headache, worsening transaminitis in the setting of known preeclampsia. Patient is s/p 24 hrs of magnesium sulfate infusion. Started on Procardia ER 30mg BID. The patient feels better, headache has completely improved. Transaminitis trending downward. Blood pressures now in the lower end of normal. Otherwise the pain is well controlled with current medications. ?She has no new complaints. ?She is breast feeding and reports things are going well.? She has remained afebrile.? Has a good appetite, is tolerating a general diet. ?She is voiding without difficulty.? She is passing gas and has had a bowel movement.? She is ambulating and denies any dizziness.? Has Small amount of rubra lochia. ? Labs Labs: Laboratory Tests 08/22/22 08/21/22 08/21/22 Range/Units 05:20 11:50 05:05 WBC 8.64 9.38 8.77 (4.50-11.00) K/uL RBC 3.61 L 3.74 L 3.50 L (4.00-5.20) m/uL Hgb 11.0 L 11.5 L 10.8 L (12.0-16.0) gm/dL Hct 34.1 35.3 33.1 (33.0-51.0) % MCV 95 94 95 (80-100) fL MCH 31 31 31 (26-34) pg MCHC 32 33 33 (32-36) gm/dL Plt Count 323 360 350 (140-440) K/uL BUN 10 10 12 (5-24) mg/dL Creatinine 0.5 0.6 0.6 (0.5-1.5) mg/dL Estimated Creat Clear 133.03 110.86 110.86 Estimated GFR 124 118 118 ml/min Magnesium 6.8 H* 6.2 H* (1.5-2.6) mg/dL AST 43 H 60 H 59 H (12-35) U/L ALT 42 H 52 H 49 H (4-35) U/L 08/20/22 Range/Units 23:35 WBC 9.47 (4.50-11.00) K/uL RBC 3.48 L (4.00-5.20) m/uL Hgb 10.6 L (12.0-16.0) gm/dL Hct 32.5 L (33.0-51.0) % MCV 93 (80-100) fL MCH 31 (26-34) pg MCHC 33 (32-36) gm/dL Plt Count 321 (140-440) K/uL BUN 15 (5-24) mg/dL Creatinine 0.6 (0.5-1.5) mg/dL Estimated Creat Clear 110.86 Estimated GFR 118 ml/min Magnesium 5.6 H* (1.5-2.6) mg/dL AST 58 H (12-35) U/L ALT 47 H (4-35) U/L OB Problem List Additional Plan (1) Preeclampsia in period: Problem details: Preeclampsia with severe features Status: Acute DS: Summary Vital Signs Vital Signs: Vital Signs Temp Pulse Resp BP Pulse Ox O2 Del Method 08/22/22 08:06 98.6 F 86 16 109/76 98 Room Air 08/22/22 04:12 98.8 F 76 16 90/54 L 96 Room Air 08/22/22 00:00 98.5 F 80 16 98/54 L 97 Room Air 08/21/22 20:00 98.3 F 85 16 124/79 96 Room Air 08/21/22 16:01 98.1 F 99 16 134/85 96 Room Air 08/21/22 12:34 98.1 F 84 16 105/70 96 Room Air 08/21/22 09:57 98.3 F 96 16 118/79 96 Room Air Discharge Examination General appearance: alert and in no apparent distress Physical Examination findings: GENERAL APPEARANCE:? normal affect, alert, no distress MOOD:? appropriate CHEST:? clear to auscultation HEART:? regular rate and rhythm ABDOMEN:? soft, non-tender the uterine fundus is At Umbilicus, Midline and is appropriate for the stage of recovery. EXTREMITIES:? normal and bilateral pitting edema +1 Incision: Healing well, no surrounding erythema, abnormal induration or discharge.
[2022-08-22] MEDS: NIFEdipine 30 MG TAB.ER.24 PO (09:08)
== END 2022-08-22 09:20 | disposition home or self-care (01) | DRG 776 ==
PROVIDERS: Obstetrics & Gynecology; Admitting Provider Obstetrics & Gynecology; PCP Family Medicine; Visit Provider Obstetrics & Gynecology
DX: O14.15 Severe pre-eclampsia, complicating the puerperium (principal)
CPT/HCPCS: 36415; 80048; 80076; 82565; 83735; 84450; 84460; 84520; 85025; 85027; 99282; A9270; J1200; J1885; J2765; J3475; J7120

== ENCOUNTER 2022-10-08 08:32 | Outpatient (CLI) | payer OTHER, SELFPAY | END 2022-10-08 08:33 | disposition home or self-care (01) | LOC: NFLDREF 10-10 06:09 | PROVIDERS: PCP Family Medicine; Referring Provider Family Medicine; Visit Provider Obstetrics & Gynecology | DX: O24.419 Gestational diabetes mellitus in pregnancy, unspecified control (principal) | CPT/HCPCS: 82947; 82950 ==

== ENCOUNTER 2022-10-09 09:39 | Outpatient (CLI) | payer OTHER, SELFPAY | END 2022-10-09 09:40 | disposition home or self-care (01) | LOC: FRMREF 09:40 | PROVIDERS: PCP Family Medicine; Visit Provider Dermatology | DX: B99.9 Unspecified infectious disease (principal) | CPT/HCPCS: 87070 ==

== ENCOUNTER 2022-12-19 16:20 | Outpatient (CLI) | payer OTHER, SELFPAY | END 2022-12-19 16:21 | disposition home or self-care (01) | LOC: NFLDREF 16:21 | PROVIDERS: PCP Family Medicine; Visit Provider Family Medicine | DX: Z01.818 Encounter for other preprocedural examination (principal) | CPT/HCPCS: 80048 ==

== ENCOUNTER 2023-01-08 07:57 | Day surgery (SDC) | payer OTHER, SELFPAY ==
[2023-01-08] VITALS (13 sets, daily range): BP systolic 105–154; BP diastolic 65–98; PULSE 60–93; RESP 12–18; TEMP 36.3–37; O2SAT 95–100; BMI 30.4
[2023-01-08] MEDS: LACTATED RINGERS 1000 ML 1,000 ML 100 ML IV (08:40)
[2023-01-08] MEDS: SODIUM CHLORIDE 0.9 % (FLUSH) 10 ML SYRINGE IVF (08:40)
[2023-01-08] MEDS: CEFAZOLIN 2 GM INJ IVP (09:12)
[2023-01-08] MEDS: BUPIVACAINE 0.5% 30 ML 20 ML INJECTION (09:17)
[2023-01-08] MEDS: METOCLOPRAMIDE HCL 5 MG/ML INJ 10 MG IVP ×2 (10:37→11:15)
--- NOTE | 2023-01-08 10:38 | W.PM.H&PU ---
History & Physical Update History & Physical Update H&P Reviewed and patient assessed: No changes noted
--- NOTE | 2023-01-08 10:39 | PM.GSPRC ---
Operative Note Pre-op diagnosis: biliary colic Post-op diagnosis: Same Type of Procedure: Laparoscopic cholecystectomy Indications: Patient is a 37-year-old female who presented to clinic with symptoms consistent with biliary colic. Abdominal ultrasound did demonstrate adenomyomatosis. I looked over the images myself and the another radiologist and it does appear that there was sludge within the gallbladder as well. Different treatment options were reviewed including non operative management versus operative intervention. Risks and benefits of operative intervention were discussed at length with the patient. Risks included but was not limited to: Bleeding, infection, risk of damage to surrounding structures, possible need for additional procedures, possible need to convert to an open operation and postoperative complications such as pneumonia, pulmonary emboli or MS. All questions and concerns were addressed with the patient agreeing to proceed. Procedure Description: After discussing the risks and benefits of the procedure, the patient signed informed consent.? The operative site was marked and the patient was brought to the operating room and placed on the operating table in supine position.? Care was taken to pad the patient's pressure points.?? The patient was then intubated by anesthesia.?? The operative site was then prepped and draped in the usual sterile fashion.? A time-out was then performed. Entrance to the abdomen was gained via a 5 mm Visiport in the left upper quadrant. The abdomen was insufflated and briefly surveyed for signs of injury. There was none. 11 mm umbilical port was placed as well as 2 working ports along the right costal margin. Patient was then placed in reverse Trendelenburg position with the right side up. The gallbladder fundus was grasped and retracted cephalad. A small amount of dissection was needed to free omental adhesions from the gallbladder. The infundibulum was grasped. A combination of hook cautery and blunt dissection was used to carefully dissect out the cystic duct and artery until they could clearly be seen entering the gallbladder without any intervening structures. The gallbladder was dissected off the cystic plate to achieve the critical view. Once this was achieved the cystic duct and artery were each clipped with 2 clips proximally and 1 clip distally and transected with the scissors. The gallbladder was then taken off of the liver bed. During this manipulation a clip on the specimen side did get dislodged and fall behind the liver. The gallbladder was removed from the abdomen using an Endo-Catch bag. The gallbladder bed was surveyed for hemostasis. A small amount of bile which had spilled was suctioned from the abdomen the ports were then removed under direct vision. The umbilical port fascia was closed with 0 Vicryl. The skin was closed with absorbable subcuticular suture. Instrument sponge and needle counts were correct at the end of the case. The patient was then woken and transferred to the PACU in stable condition. Findings: Normal gallbladder Anesthesia: GETA Surgeon: Lindsey Hansen MD Estimated blood loss (mL): 15 Specimen: Gallbladder Condition: stable Disposition: same day Date of procedure: 01/08/23
[2023-01-08] MEDS: ONDANSETRON 2 MG/ML inj 4 MG IVP (10:42)
--- NOTE | 2023-01-08 10:45 | W.ANESCHARGE ---
Anesthesia Charges Start Date/Time Anesthesia Start Date: 01/08/23 Anesthesia Start Time: 08:58 Stop Date/Time Anesthesia Stop Date: 01/08/23 Anesthesia Stop Time: 10:40
[2023-01-08] MEDS: LACTATED RINGERS 1000 ML 1,000 ML 35 ML IV (10:52)
[2023-01-08] MEDS: fentaNYL 100 MCG/2 ML inj 50 MCG IVP (10:55)
[2023-01-08] MEDS: ACETAMINOPHEN 500 MG TABLET 1000 MG PO (11:25)
--- NOTE | 2023-01-08 12:37 | W.ANESCHARGE ---
Anesthesia Charges Start Date/Time Anesthesia Start Date: 01/08/23 Anesthesia Start Time: 08:58 Stop Date/Time Anesthesia Stop Date: 01/08/23 Anesthesia Stop Time: 10:40
== END 2023-01-08 12:11 | disposition home or self-care (01) ==
PROVIDERS: PCP Family Medicine; Visit Provider Surgery
PROC: 0FT44ZZ Resection of Gallbladder, Percutaneous Endoscopic Approach (ICD-10-PCS; CPT 47562; principal; 2023-01-08 09:15)
DX: K81.1 Chronic cholecystitis (principal)
CPT/HCPCS: 47562; 00790; 88304; A9270; J0330; J0665; J0690; J1100; J1170; J2250; J2405; J2704; J2710; J2765; J3010; J7120

== ENCOUNTER 2023-10-23 08:24 | Outpatient (CLI) | payer OTHER, SELFPAY ==
--- OUTSIDE RECORDS SUMMARY | 2023-10-23 08:27 | XMS_ITS | Encounter Summary ---
Author Organization [place] Address Replaced by [facility] [place] [address] Care Team Providers Care Conference Translator Name Role Phone [facility] - [facility] Primary Care Provider Ruben Melendez MD Unavailable Kishor Tsai MD Unavailable Unavailable Breanna North MD Unavailable [phone] Encounter Details Date Type Department Care Team (Late st Contact Info) Description 11/29/2020 MyC Medical Advice [facility] [place] [address] [facility] [address] [place] [address] [place] [address] [place], [place] [id number] Social History Tobacco Use Types Packs/Day Years Used Date Smoking Tobacco: Former Cigarettes Q uit: 10/21/2016 Smokeless Tobacco: Never Alcohol Use Standard Drinks/Week Comments Yes 0 (1 standard drink = 0.6 oz pur e alcohol) occ PHQ-2 Answer Date Recorded PHQ-2 Score 0 11/04/2018 Sex and Gender Information Value Date Recorded Sex Assigned at Female 07/23/2020 3:45 PM CDT Gender Identity Female 07/23/2020 3:45 PM CDT Sexual Orientation Not on file documented as of this encounter Plan of Treatment Not on file documented as of this encounter Visit Diagnoses Not on filedocumented in this encounter Care Teams Conference Translator Relationship Specialty Start Date End Date Center - [facility] [address] [place] [address] PCP - General Clinic 10/03/19 [place] [address] [place] [address] Assigned OBGYN Provider 12/02/19 Kishor Tsai MD Assigned PCP 10/28/20 10/03/22 Breanna North MD [address] [address] Assigned OBGYN Provider 04/19/22 documented as of this encounter
--- OUTSIDE RECORDS SUMMARY | 2023-10-23 08:27 | XMS_ITS | Referral Summary ---
Author Organization [place] Address [address] [place] [address] Care Team Providers Care Peoplesoft Developer Name Role Phone [facility] Primary Care Provider Breanna North MD Unavailable [phone] Allergies Active Allergy Reactions Criticality Noted Date Comments No Known Allergies 10/03/2019 Medications Medication Sig Dispensed Refills Start Date End Date Status VITAMIN D, CHOLECALCIFEROL, PO Take 2,000 Units by mouth daily Active Vit-Fe Fumarate-FA ( MULTIVITAMIN W/IRON) 27-0.8 MG tabletIndications:Pr imary female infertility Take 1 tablet by mouth daily Active fluconazole (DIFLUCAN) 150 MG tabletIndications:An tibiotic-induced yeast infection Take 1 tablet by mouth x 1; May repeat in 1 week if still symptomatic 2 tablet 07/23/2020 Active Active Problems Problem Noted Date Diagnosed Date Pelvic pain in female 09/14/2019 Overview: Added automatically from request for surgery [id number] Fibrocystic breast changes of both breasts 08/18 Primary female infertility 08/18/2017 Anxiety 07/27/2017 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 She is getting records. 10/12/15: HSIL/CIS. Plan colp 12/04/15: LEEP - negative for dysplasia (colp not done). Plan cotest in 1 year. 08/18/17 NIL Pap, Neg HPV. Plan cotest in 1 year. 09/30/18 Lost to follow-up for pap tracking 11/04/18 Pap: NIL/neg HR HPV. Plan cotest in 3 years Immunizations Name Administration Dates Next Due TDAP Vaccine (Adacel) 09/10/2011 Social History Tobacco Use Types Packs/Day Years Used Date Smoking Tobacco: Former Cigarettes Q uit: 10/21/2016 Smokeless Tobacco: Never Tobacco Cessation:Ready to Q uit: No; Counseling Given: Yes Alcohol Use Standard Drinks/Week Comments Yes 0 (1 standard drink = 0.6 oz pur e alcohol) occ PHQ-2 Answer Date Recorded PHQ-2 Score 0 11/04/2018 Adolescent Education Answer Date Record ed Getting School Help Needed Not on file 10/31 Sex and Gender Information Value Date Recorded Sex Assigned at Female 07/23/2020 3:45 PM CDT Gender Identity Female 07/23/2020 3:45 PM CDT Sexual Orientation Not on file Last Filed Vital Signs Vital Sign Reading Time Taken Comments Blood Pressure 107/59 10/03/2019 3:05 PM CDT Pulse 73 10/03/2019 1:34 PM CDT Temperature 36.9 ??C (98.5 ??F) 10/03/2019 3:05 PM CD T Respiratory Rate 16 10/03/2019 3:05 PM CDT Oxygen Saturation 95% 10/03/2019 3:05 PM CDT Inhaled Oxygen Concentration - - Weight 65.8 kg (145 lb) 10/03/2019 9:51 AM CDT Height 161.9 cm (5' 3.75) 10/03/2019 9:51 AM CD T Body Mass Index 25.08 10/03/2019 9:51 AM CDT Plan of Treatment Not on file Procedures Procedure Name Priority Date/Time Associated Diagnosis Comments BASIC METABOLIC PANEL Routine 09/30/2019 3:39 PM CDT HPV HIGH RISK TYPES DNA CERVICAL Routine 11/04/2018 3:00 PM CDT HSIL on Pap smear of cervix PAP IMAGED THIN LAYER, DIAGNOSTIC Routine 11/04/2018 2:47 PM CDT HSIL on Pap smear of cervix from Last 3 Months or Most Recently Relevant to Health Maintenance Results * Basic metabolic panel (09/30/2019 3:39 PM CDT) Sodium 137 136 - 145 mmol/L 09/30/2019 6:52 PM CDT [facility] Potassium 3.8 3.5 - 5.0 mmol/L 09/30/2019 6:52 PM CDT [facility] Chloride 103 98 - 107 mmol/L 09/30/2019 6:52 PM CDT [facility] Carbon Dioxide (CO2) 25 22 - 31 mmol/L 09/30/2019 6:52 PM CDT [facility] Anion Gap 9 5 - 18 mmol/L 09/30/2019 6:52 PM CDT [facility] Glucose 103 70 - 125 mg/dL 09/30/2019 6:52 PM CDT [facility] Calcium 9.5 8.5 - 10.5 mg/dL 09/30/2019 6:52 PM CDT [facility] Urea Nitrogen 11 8 - 22 mg/dL 09/30/2019 6:52 PM CDT [facility] Creatinine 0.81 0.60 - 1.10 mg/dL 09/30/2019 6:52 PM CDT [facility] GFR Estimate If Black >60 >60 mL/min/1.7 3m2 09/30/2019 6:52 PM CDT [facility] GFR Estimate >60 >60 mL/min/1.7 3m2 09/30/2019 6:52 PM CDT [facility] Blood specimen (specimen) Venipuncture / Unknown 09/30/2019 3:39 PM CDT 09/30/2019 6:09 PM CDT Narrative [facility] - 09/30/2019 6:52 PM CDT Fasting Glucose reference range is 70-99 mg/dL per [place] Diabetes [employer] (ADA) guidelines. Kishor Tsai MD LAB - BLOOD ORDERABL ES [facility] [address] [place] [address], [facility] [address] [place] [address] * HPV High Risk Types DNA Cervical (11/04/2018 3:00 PM CDT) HPV Source [facility] 11/04/2018 2:47 PM CDT [facility] HPV 16 DNA Negative NEG^Nega tive 11/11/2018 1:16 PM CDT [facility] HPV 18 DNA Negative NEG^Nega tive 11/11/2018 1:16 PM CDT [facility] Other HR HPV Negative NEG^Nega tive 11/11/2018 1:16 PM CDT [facility] Final Diagnosis This patient's sample is negative for HPV DNA. 11/11/2018 1:16 PM CDT [facility] Comment: This test was developed and its performance characteristics determined by the [facility]. It has not been cleared or approved by the FDA. The laboratory is regulated under CLIA as qualified to perform high-complexity testing. This test is used for clinical purposes. It should not be regarded as investigational or for research. (Note) METHODOLOGY: ??The Becky emerson [id number] system uses automated extraction, simultaneous amplification of HPV (L1 region) and beta-globin, ?? followed by ??real time detection of fluorescent labeled HPV and beta globin using specific oligonucleotide probes . The test specifically identifies types HPV 16 DNA and HPV 18 DNA while concurrently detecting the rest of the high risk types (31, 33, 35, 39, 45, 51, 52, 56, 58, 59, 66 or 68). COMMENTS: ??This test is not intended for use as a screening device for women under age 30 with normal cervical cytology. ??Results should be correlated with cytologic and histologic findings. Close clinical followup is recommended. Specimen Description Cervical Cells 11/04/2018 2:47 PM CDT [facility] Comment:[id number] Cervical Cells CERVIX UTERI STRUCTURE / Unknown 11/04/2018 3:00 PM CDT 11/04/2018 3:12 PM CDT Laurie Iqbal MD LAB - BLOOD ORDER CHELSIE [address] [address] * Pap imaged thin layer diagnostic with HPV (select HPV order below) (11/04/2018 2:47 PM CDT) PAP JUAN Chow Report Patient Name: ANDREA MARTINEZ MR#: [id number] Specimen #: [id number] Collected: 11/04/2018 Received: 11/05/2018 Reported: 11/08/2018 14:44 Ordering Phy(s): LAURIE IQBAL For improved result formatting, select 'View Enhanced Report Format' under Linked Documents section. SPECIMEN/STAIN PROCESS: Pap Imaged thin layer prep diagnostic (Sure[facility], [facility]Point with guided screening) ? Pap-Cyto x 1, HPV ordered x 1 SOURCE: Cervical, endocervical Pap Imaged thin layer prep diagnostic (Sure[facility], FocalPoint with guided screening) SPECIMEN ADEQUACY: Satisfactory for evaluation. -Transformation zone component present. CYTOLOGIC INTERPRETATION: Negative for intraepithelial lesion or malignancy Electronically signed out by: KIM Landon ??(ASCP) CLINICAL HISTORY: A previous normal pap Date of Last Pap: 08/18/2017 Previous HGSIL, Papanicolaou Test Limitations: ??Cervical cytology is a screening test with limited sensitivity; regular screening is critical for cancer prevention; Pap tests are primarily effective for the diagnosis/preventi on of squamous cell carcinoma, not adenocarcinomas or other cancers. COLLECTION SITE: Client: ?? [facility] Location: [facility] () The technical component of this testing was completed at the [facility], with the professional component performed at the [facility] [address], [place] [address] ([phone]) COPATH Cytologic material (specimen) 11/04/2018 2:47 PM CDT 11/05/2018 8:25 AM CDT Laurei Iqbal MD LAB - OPT[facility] CLIN ICAL SPECIMEN COPATH from Last 3 Months or Most Recently Relevant to Health Maintenance Care Teams Peoplesoft Developer Relationship Specialty Start Date End Date Center - [facility] [address] [place] [address] PCP - General Clinic 10/03/19 Breanna North MD [address] [place] [address] Assigned OBGYN Provider 04/19/22
--- OUTSIDE RECORDS SUMMARY | 2023-10-23 08:27 | XMS_ITS | Encounter Summary ---
Author Organization [place] Address [address] [place] [address] Care Team Providers Care Drier Operator Head Name Role Phone Center - [facility] Primary Care Provider Kishor Tsai MD Unavailable Unavailable Breanna North MD Unavailable [phone] Encounter Details Date Type Department Care Team (Late st Contact Info) Description 06/19/2021 MyC Medical Advice [address] [address] Kishor Tsai MD Social History Tobacco Use Types Packs/Day Years [...] on filedocumented in this encounter Care Teams Drier Operator Head Relationship Specialty Start Date End Date [place] [facility] [address] [place], [place] [id number] PCP - General Clinic 10/03/19 Kishor Tsai MD Assigned PCP 10/28/20 10/03/22 Breanna North MD [address] [place] [address] Assigned OBGYN Provider 04/19/22 documented as of this encounter
--- OUTSIDE RECORDS SUMMARY | 2023-10-23 08:27 | XMS_ITS | Clinical Summary ---
Author Organization [facility] Address [place], [place] [address] Care Team Providers Care Services Clerk Name Role Phone Pcp, No Primary Care Provider Unavailabl e Medications Medication Sig Dispensed Refills Start Date End Date Status escitalopram oxalate (LEXAPRO) 5 mg tabletIndications:Anx iety and depression Take 1 tablet by mouth once daily. 30 tablet 2 04/09/2017 Active Active Problems Problem Noted Date Diagnosed Date Depressive disorder, not elsewhere classified Overview (10/01/2005): in counseling; on lexapro Migraine, unspecified, witho ut mention of intractable migraine without mention of status migrainosus 10/01/2005 Overview (10/01/2005): sees neurologist Immunizations Name Administration Dates Next Due Hepatitis B (Adult) 10/01/2005 Tdap 09/10/2011,10/01/2005 Family History Medical History Relation Name Comments Coronary artery disease Father Cancer-breast Maternal Grandmother Psychiatric illness Mother depressi on Asthma Paternal Grandfather Diabetes Paternal Grandfather Heart Disease Paternal Grandfather Hyperlipidemia Paternal Grandfather Cancer-breast Paternal Grandmother Relation Name Status Comments Father Maternal Grandmother Mother Alive Paternal Grandfather Paternal Grandmother Social History Tobacco Use Types Packs/Day Years Used Date Smoking Tobacco: Former Cigarettes Smokeless Tobacco: Never Tobacco Cessation:Counseling Given: Yes Comments:rare Alcohol Use Standard Drinks/Week Comments Yes 0 (1 standard drink = 0.6 oz pur e alcohol) occassional. Sex and Gender Information Value Date Recorded Sex Assigned at Not on file Gender Identity Not on file Sexual Orientation Not on file Obstetrics History Para Term AB IAB SAB Ectopic Multiple Livin g Live Births 0 0 0 0 0 0 0 0 0 0 0 Last Filed Vital Signs Vital Sign Reading Time Taken Comments Blood Pressure 128/76 02/10/2017 3:21 PM HOSPICE [facility]PERINTENDENT Pulse 72 02/10/2017 3:21 PM HOSPICE SUPERINTENDENT Temperature 36 ??C (96.8 ??F) 10/10/2005 4:04 AM CDT Respiratory Rate 16 01/13/2017 2:26 PM HOSPICE SUPERINTENDENT Oxygen Saturation 97% 10/10/2005 11:00 AM CDT Inhaled Oxygen Concentration - - Weight 64 kg (141 lb) 02/10/2017 3:21 PM HOSPICE SUPERINTENDENT Height 162.6 cm (5' 4) 01/13/2017 2:26 PM HOSPICE SUPERINTENDENT Body Mass Index 24.2 01/13/2017 2:26 PM HOSPICE SUPERINTENDENT Plan of Treatment Health Maintenance Due Date Last Done Comments HIV for age 15-65 2000 Hepatitis C screening for age 18-79 05/08/2003 BMI (ht and wt on same day) for age 18+ 01/13/2018 01/13/2017 Depression screening for age 12+ 02/10/2018 02/10/2017, 01/13/2017 Tetanus booster 09/09/2021 09/10/2011, 10/01/2005 COVID-19 vaccine series ( season) 2023 Influenza for age 9-49 10/11/2023 Pap test for age 21-65 01/28/2025 , 01/28/2022, 10/01/2005, Additional history exists Tdap Completed 09/10/2011, 10/01/2005 Pneumococcal series for age 6-64 Aged Out No longer eligible based on patient's age to complete this topic Procedures Procedure Name Priority Date/Time Associated Diagnosis Comments HPV THIN PREP Routine 01/28/2022 5:00 PM HOSPICE SUPERINTENDENT from Last 3 Months or Most Recently Relevant to Health Maintenance Results * HPV HIGH RISK (01/28/2022 5:00 PM HOSPICE SUPERINTENDENT) TYPE 16 Negative Negative 02/04/2022 11:00 AM HOSPICE SUPERINTENDENT [facility] TYPE 18 Negative Negative 02/04/2022 11:00 AM HOSPICE SUPERINTENDENT [facility] OTHER HIGH RISK TYPES Negative Negative 02/04/2022 11:00 AM HOSPICE SUPERINTENDENT [facility] Other (Cervical) 01/28/2022 5:00 PM HOSPICE SUPERINTENDENT 01/30/2022 3:55 PM HOSPICE SUPERINTENDENT Narrative [facility] - 02/04/2022 11:00 AM HOSPICE SUPERINTENDENT HPV types 16, 18, 31, 33, 35, 39, 45, 51, 52, 56, 58, 59, 66 and 68 DNA were undetectable or below the pre-set threshold. Methodology: Becky Nicolas 4800 HPV Test Linh Navarrete NP [employer]CRO[employer] [facility] [address] [place] [address], from Last 3 Months or Most Recently Relevant to Health Maintenance Care Teams Services Clerk Relationship Specialty Start Date End Date Pcp, No . PCP - General 02/28/20
--- OUTSIDE RECORDS SUMMARY | 2023-10-23 08:27 | XMS_ITS | Clinical Summary ---
Author Organization [facility] Address [address] [place] [id number] Care Team Providers Care Plaster Helper Name Role Phone [facility] [employer] Primary Care Provider Breanna North MD Unavailable [phone] Allergies Active Allergy Reactions Criticality Noted [...] Overview: Added automatically from request for surgery [id number] Fibrocystic breast changes of both breasts 08/18 [...] Dates Next Due TDAP Vaccine (Adacel) 09/10/2011 Family History Medical History Relation Comments Coronary Artery Disease Father Heart Disease Father Relation Status Comments Brother Alive Father Maternal Grandfather Maternal Grandmother Alive Mother Alive Paternal Grandfather Paternal Grandmother Sister 1 Alive Sister 2 Alive Social History Tobacco Use Types Packs/Day Years [...] 10/03/2019 9:51 AM CDT Plan of Treatment Health Maintenance Due Date Last Done Comments ADVANCE CARE PLANNING 1985 ANNUAL REVIEW OF HM ORDERS 1985 HIV SCREENING 2000 HEPATITIS C SCREENING 05/08/2003 HEPATITIS B IMMUNIZATION (2 of 3 - 19+ 3-dose series) 10/29/2005 10/01/2005 YEARLY PREVENTIVE VISIT 11/05/2019 11/05/19 19, 08/18/2017, 10/12/2015 HPV FOLLOW-UP 11/04/2021 11/04/2018, 08/18/2017 PAP FOLLOW-UP 11/04/2021 11/04/2018, 08/09, 10/12/2015 GLUCOSE 09/29/2022 09/30/2019 PHQ-2 (once per calendar year) 2023 11/04/2018, 10/21/2017, 08/18/2017, Additional history exists COVID-19 Vaccine ( season) 2023 INFLUENZA VACCINE (#1) 2023 12/29/2018 DTAP/TDAP/TD IMMUNIZATION (5 - Td or Tdap) 02/10/2028 02/09/2018, 09/19/2011, 09/10/2011, Additional history exists HPV IMMUNIZATION Aged Out No longer e ligible based on patient's age to complete this topic MENINGITIS IMMUNIZATION Aged Out No l onger eligible based on patient's age to complete this topic Pneumococcal Vaccine: Pediatrics (0 to 5 Years) and At-Risk Patients (6 to 64 Years) Aged Out No longer eligible based on patient's age to complete this topic RSV MONOCLONAL ANTIBODY Aged Out No l onger eligible based on patient's age to complete [...] - 145 mmol/L 09/30/2019 6:[address] [facility] Potassium 3.8 3.5 - 5.0 mmol/L 09/30/2019 6:[address] [facility] Chloride 103 98 - 107 mmol/L 09/30/2019 6:[address] [facility] Carbon Dioxide (CO2) 25 22 - 31 mmol/L 09/30/2019 6:[address] [facility] Anion Gap 9 5 - 18 mmol/L 09/30/2019 6:[address] [facility] Glucose 103 70 - 125 mg/dL 09/30/2019 6:[address] [facility] Calcium 9.5 8.5 - 10.5 mg/dL 09/30/2019 6:[address] [facility] Urea Nitrogen 11 8 - 22 mg/dL 09/30/2019 6:[address] [facility] Creatinine 0.81 0.60 - 1.10 mg/dL 09/30/2019 6:[address] [facility] GFR Estimate If Black >60 >60 mL/min/1.7 3m2 09/30/2019 6:[address] [facility] GFR Estimate >60 >60 mL/min/1.7 3m2 09/30/2019 6:[address] [facility] Blood specimen (specimen) Venipuncture / Unknown 09/30/2019 3:39 PM CDT 09/30/2019 6:09 PM CDT Narrative [facility] - 09/30/2019 6:52 PM CDT Fasting Glucose reference range is 70-99 mg/dL per [place] [employer] (ADA) guidelines. Kishor Tsai MD LAB - BLOOD ORDERABL ES [facility] [address] [address], [facility] [address] [address] * HPV High Risk Types DNA Cervical (11/04/2018 3:00 PM CDT) HPV Source [facility] 11/04/2018 2:47 PM CDT [facility] HPV 16 DNA Negative NEG^Nega tive 11/11/2018 1:16 PM CDT [facility] HPV 18 DNA Negative NEG^Nega tive 11/11/2018 1:16 PM CDT [facility] Other HR HPV Negative NEG^Nega tive 11/11/2018 1:16 PM CDT [facility] Final Diagnosis This patient's sample is negative for HPV DNA. 11/11/2018 1:16 PM CDT [facility] Comment: This test was developed and its performance characteristics determined by the [facility], [facility]. It has not been [...] Description Cervical Cells 11/04/2018 2:47 PM CDT [facility] Comment:[id number] Cervical Cells CERVIX UTERI STRUCTURE / Unknown 11/04/2018 3:00 PM CDT 11/04/2018 3:12 PM CDT Laurie Iqbal MD LAB - BLOOD ORDER CHELSIE [facility] [address] [place] [address] [facility] [address] [place], [place] [id number] * Pap imaged thin layer diagnostic with HPV (select HPV order below) (11/04/2018 2:47 PM CDT) PAP JUAN Chow Report Patient Name: ANDREA MARTINEZ MR#: [id number] Specimen #: [id number] Collected: 11/04/2018 Received: 11/05/2018 Reported: 11/08/2018 14:44 [...] Client: [facility] Location: [facility] ([place]) The technical component of this testing was completed at the [facility], with the professional component performed at the [facility], [address] [place] [phone] ([phone]) YOGESH Cytologic material (specimen) 11/04/2018 2:47 PM CDT 11/05/2018 8:25 AM CDT Laurie Iqbal MD LAB - OPTIME CLIN ICAL SPECIMEN COPATH from Last 3 Months or Most Recently Relevant to Health Maintenance Care Teams Plaster Helper Relationship Specialty Start Date End Date Center - [facility] [address] [place] [address] PCP - General Clinic 10/03/19 Breanna North MD [address] [address] Assigned OBGYN Provider 04/19/22
== END 2023-10-23 08:25 | disposition home or self-care (01) ==
PROVIDERS: PCP Family Medicine; Visit Provider Family Medicine
DX: R23.3 Spontaneous ecchymoses (principal)
CPT/HCPCS: 80053; 82607; 82728; 82746; 84443; 85025; 85240; 85245; 85246; 85610; 85730